=== PATIENT | male | born 1950 | race Caucasian/White ===

== ENCOUNTER 2019-04-03 21:10 | Inpatient (IN) ==
--- NOTE | 2019-04-04 01:05 | Internal Med History&Physical ---
<Angie Coley - Last Filed: 04/04/19 03:49> Date of Encounter: 04/04/19 Time of Encounter: 01:05 Internal Medicine - H&P: HPI Chief complaint: Dizziness, nausea, vomiting Admitted From: Hospital to Hospital Transfer Plans for Post Hospital Care: Home History of present illness: Mr. Stephens is a 68 year old male with past medical history of hypertension who presented as a transfer from [facility] for urological evaluation. Upon my examination the patient he reported that he initially went to the ED due to multiple complaints of dizziness, nausea, vomiting. He reported that today around 1 o'clock after he had eaten [place] for lunch he woke up from a nap with a weird sensation of tingling in his abdomen along with pain. He then got up and felt dizzy and lightheaded. He tried urinating however was unable to. He then became nauseous and vomited his lunch. Additionally he had headache. He still felt unwell and other was something wrong so he called his son and EMS. The patient reported that EMS told him his blood pressure was 187/129. He denied fever, chills, chest pain, shortness of breath, diarrhea, hematuria, melena, weight loss. He has never had anything like this before. He has not taking his metoprolol and over 2 years for hypertension. He reported having difficulty urinating for approximately 2 months with increased urinary frequency throughout the day, dribbling after urinating, feeling of incomplete bladder emptying when urinating. He denied hematuria. He has never had a cystoscopy before. He does not have abdominal pain after eating greasy or fatty foods, however he does notice that spicy foods and salads give him heartburn. His last colonoscopy was a 55 years old when he was told he had 3 polyps that were benign. He denied smoking, drug use, alcohol use. He is a family history of father having colon cancer. He is a full code. In [facility] initial vitals were BP 174/92, HR 72, RR 16, temperature 98.2, 93% on room air. The patient was given ciprofloxacin 400 mg, 1L IVF, clonidine 0.1 mg, Dilaudid 1 mg, famotidine, Zofran. Patient has gross hematuria in hernandes catheter bag that is secondary to traumatic hernandes catheter placement (difficult placement) at [facility]. -WBC 5.3, hemoglobin 16.4, platelets 116, sodium 134, potassium 3.6, glucose 165, creatinine 0.78, calcium 8.7, troponin < 0.03, total bilirubin 1.0, alkaline phosphatase 109, AST 33, ALT 40. -CT abdomen/pelvis demonstrated mild to moderately enlarged retroperitoneal/pe lvic lymph nodes with some adjacent inflammatory change. Findings may be nonspecific inflammatory, infectious, or neoplastic. Nonspecific areas of sclerosis involving the left pubic and iliac bones without fracture. Consider dedicated bone scan or correlate with history of malignancy. Prostatomegaly 8.3 x 7.8 cm and splenomegaly. Scattered subcentimeter by basilar pulmonary nodules with recommendation of one year chest CT follow-up. Past Med Surg Social Fam HX - Past Medical History Attestation: Yes The following information was validated with the patient. Source: patient Medical history: hyperlipidemia, hypertension Psychiatric history: anxiety - Past Surgical History Surgical History: arthroscopy, orthopedic, other Additional surgical history: Left shoulder surgery. bilat knee arthroscopy, right shoulder surgery. Left knee replacement - Social History Smoking Status: Never smoker Smokeless Tobacco Status: No Alcohol use: none Drug use: none - Family History Father Living Status: Age at : 83 Cause of : CA Hx Family Cardiac Disorders: No Hx Family Respiratory Disorders: No Hx Family Cancer: Yes (Prostate CA) Hx Family GI Disorders: No Hx Family Genitourinary Disorders: No Hx Family Endocrine Disorder: No Hx Family Musculoskeletal Disorders: No Hx Family Neuromuscular Disorders: No Hx Family Neurologic Disorders: No Hx Family HEENT Disorders: No Hx Family Autoimmune Disorders: No Hx Family Reproductive Disorders: No Hx Family Psychosocial Disorders: No Hx Family Medical Disorders: No Mother Living Status: Age at : 73 Hx Family Cardiac Disorders: Yes Hx Family Respiratory Disorders: No Hx Family Cancer: No Hx Family GI Disorders: No Hx Family Genitourinary Disorders: No Hx Family Endocrine Disorder: No Hx Family Musculoskeletal Disorders: No Hx Family Neuromuscular Disorders: No Hx Family Neurologic Disorders: No Hx Family HEENT Disorders: No Hx Family Autoimmune Disorders: No Hx Family Reproductive Disorders: No Hx Family Psychosocial Disorders: No Hx Family Medical Disorders: No Sister Living Status: Age at : 54 Cause of : CA Hx Family Cardiac Disorders: No Hx Family Respiratory Disorders: No Hx Family Cancer: Yes (Breast CA) Hx Family GI Disorders: No Hx Family Genitourinary Disorders: No Hx Family Endocrine Disorder: No Hx Family Musculoskeletal Disorders: No Hx Family Neuromuscular Disorders: No Hx Family Neurologic Disorders: No Hx Family HEENT Disorders: No Hx Family Autoimmune Disorders: No Hx Family Reproductive Disorders: No Hx Family Psychosocial Disorders: No Hx Family Medical Disorders: No Internal Medicine - H&P: Meds Amoxicillin 875 mg PO BID 04/04/19 [History] Gemfibrozil [Lopid] 600 mg PO BID 04/04/19 [History] GuaiFENesin/Dextromethorphan [Tussin Dm Cough Syrup] 20 ml PO Q4H PRN 04/04/19 [History] Metoprolol [Lopressor] 50 mg PO DAILY 04/04/19 [History] PredniSONE [Deltasone] 40 mg PO DAILY 04/04/19 [History] Zolpidem [Ambien] 10 mg PO HS 04/04/19 [History] Allergy/AdvReac Type Severity Reaction Status Date / Time tree and shrub pollen Allergy Mild Watery Eye Verified 04/04/19 01:54 All Systems PM: A 10-system review of systems was performed and is negative for pertinent findings except as documented above in the HPI. - Constitutional Constitutional: no chills, no fever(s), no weight loss - EENT Eyes: blurry vision - Cardiovascular Cardiovascular ROS IM: lightheadedness, no chest pain, no edema, no palpitations, no syncope - Respiratory Respiratory: no cough, no dyspnea, no wheezing - Gastrointestinal Gastrointestinal: abdominal pain, loose stools, nausea, vomiting, no constipation, no melena - Genitourinary Genitourinary ROS male: difficulty urinating, post void dribbling, urinary frequency, urinary hesitancy, no hematuria - Musculoskeletal Musculoskeletal ROS IM: limited range of motion, muscle cramps, no joint swelling - Integumentary Integumentary IM: no erythema, no rash - Neurological Neurological ROS: dizziness, headache(s), no frequent falls - Psychiatric Psychiatric: no confusion - Hematologic/Lymphatic Hematologic/Lymphatic: easy bleeding - Constitutional Vitals: Temp Pulse Resp BP Pulse Ox 97.6 F 82 16 173/95 95 04/04/19 00:25 04/04/19 00:25 04/04/19 00:25 04/04/19 00:25 04/04/19 00:25 Exam: Gen.: Vitals noted. No acute distress. AAOx3 HEENT: oropharynx clear, Normocephalic, atraumatic Cardiac: RRR, no murmur, +S1/S2 Pulmonary: CTA bilaterally, no wheezes, rales or rhonchi, equal chest expansion Abdomen: soft, RLQ and LLQ tender, Bowel sounds noted, no guarding MSK: ROM decreased, no joint swelling noted Extremities: no BLE edema, nontender calf, no cyanosis or clubbing Neuro: A&Ox3, moves all extremities, no focal deficits Psych: Appropriate mood and behavior - Assessment and Plan (1) Urinary retention Current Visit: Yes Status: Acute Assessment and plan: Patient has had urinary retention for months now with increased urinary frequency, dribbling after urination, incomplete bladder emptying. No hematuria. He has never had a cystoscopy. The abdominal CT showing prostatomegaly, moderately enlarged retroperitoneal/pelvic lymph nodes, sclerosis of the pubic and iliac bones is concerning for possible malignancy with metastasis. -CT abdomen/pelvis demonstrated mild to moderately enlarged retroperitoneal/pelvic lymph nodes with some adjacent inflammatory change. Findings may be nonspecific inflammatory, infectious, or neoplastic. Nonspecific areas of sclerosis involving the left pubic and iliac bones without fracture. Consider dedicated bone scan or correlate with history of malignancy. Prostatomegaly 8.3 x 7.8 cm and splenomegaly. Plan - urology was consulted for evaluation - consider Hem/onc evaluation after urology evaluates the patient if there is suspicion for metastases with enlarged lymph nodes and sclerosis of pubic and iliac bone. - UA ordered - PSA ordered for baseline level however, it is expected to be elevated due to traumatic hernandes catheter placement - continue Hernandes catheter - continue to monitor I&O (2) Gross hematuria Current Visit: Yes Status: Acute Assessment and plan: Patient has gross hematuria in hernandes catheter bag that is secondary to traumatic hernandes catheter placement at [facility]. - continue hernandes - UA ordered - urology consult order placed (3) Abdominal pain Current Visit: Yes Status: Acute Assessment and plan: The patient complained of abdominal pain diffuse along lower abdomen that occurred this afternoon. - Etiology is likely secondary to muscular strain from wretching. Abdominal CT demonstrated no findings suggestive of small bowel obstruction, diverticulitis, appendicitis, cholecystitis, pancreatitis. - It is improved and only slightly tender. - total bilirubin 1.0, alkaline phosphatase 109, AST 33, ALT 40 - CT abdomen/pelvis demonstrated mild to moderately enlarged retroperitoneal/pelvic lymph nodes with some adjacent inflammatory change. Findings may be nonspecific inflammatory, infectious, or neoplastic. Nonspecific areas of sclerosis involving the left pubic and iliac bones without fracture. Consider dedicated bone scan or correlate with history of malignancy. Prostatomegaly 8.3 x 7.8 cm and splenomegaly. plan: - continue monitor with serial abdominal exams - Tylenol PRN pain Qualifiers: Abdominal location: lower abdomen, unspecified Qualified Code(s): R10.30 - Lower abdominal pain, unspecified (4) Nausea & vomiting Current Visit: Yes Status: Acute Assessment and plan: Patient had initially had nausea and vomiting on presentation. This is likely secondary to his hypertensive emergency. -Improved -Zofran PRN ordered Qualifiers: Vomiting type: unspecified Vomiting Intractability: non-intractable Qualified Code(s): R11.2 - Nausea with vomiting, unspecified (5) Pulmonary nodules Current Visit: Yes Status: Acute Assessment and plan: CT demonstrated pulmonary nodules bilaterally. -CT abdomen/pelvis demonstrated scattered subcentimeter by basilar pulmonary nodules with recommendation of one year chest CT follow-up. -The patient was informed of the pulmonary nodules and was recommended that he follow-up with his PCP to have a repeat chest CT in one year. He acknowledge understanding. (6) Hypertension Current Visit: Yes Status: Acute Assessment and plan: History of hypertension however he has not taken his metoprolol and over 2 years. He used to take metoprolol 50 mg daily. BP on admission 173/95 -BP now 128/74 -since BP has decreased significantly, will not start another BP med. Consider adding lisinopril or CCB if BP elevates and for discharge. - PRN hydralazine ordered Qualifiers: Hypertension type: essential hypertension Qualified Code(s): I10 - Essential (primary) hypertension (7) DVT prophylaxis Current Visit: Yes Status: Acute Assessment and plan: EPCD due to hematuria (8) Hypertensive urgency Current Visit: Yes Status: Acute Assessment and plan: The patient presented with hypertensive urgency reporting that he was told by EMS he had a blood pressure 187/129 at home. At [facility] blood pressure was noted to be 174/92 and he was given 0.1 mg clonidine. The patient was also symptomatic with dizziness, lightheadedness, headache, nausea, vomiting. He is not taking his metoprolol and over 2 years because he chose not to take it anymore. Likely secondary to non compliance with BP meds. Not suspicious for ACS. -BP on admission 173/95 -BP now 128/74 -patient still has a mild headache but is no longer having nausea, vomiting, lightheaded, dizzy. He denied chest pain, palpitations. - EKG showed NSR with no ST or T wave changes indicating ischemia - troponin <0.03 Plan -since BP has decreased significantly, will not start another BP med. Consider adding lisinopril or CCB if BP elevates and for discharge. -continue cardiac telemetry -PRN hydralazine - Time Spent With Patient Total time spent is greater than 50% in coordination of care (as documented) at patient's floor/unit and/or counseling patient: <Su Obrien - Last Filed: 04/04/19 09:40> Date of Encounter: 04/04/19 Internal Medicine - H&P: HPI History of present illness: Mr. Stephens is a 68 year old male All Systems PM: A 10-system review of systems was performed and is negative for pertinent findings except as documented above in the HPI. - Constitutional Vitals: Temp Pulse Resp BP Pulse Ox 97.9 F 87 18 114/72 92 04/04/19 08:00 04/04/19 08:00 04/04/19 08:00 04/04/19 08:00 04/04/19 08:00 Internal Med - H&P Results - Labs CBC & Chem 7: 04/04/19 05:10 04/04/19 05:10 Labs: Short CBC 04/04/19 Range/Units 05:10 WBC 9.5 (4.3-11.1) K/mcL Hgb 16.5 (12.9-16.9) g/dL Hct 46.4 (37.5-50.1) % Plt Count 121 L (140-400) K/mcL Neutrophils # 6.4 (1.6-8.9) K/mcL BMP 04/04/19 05:10 Sodium 134 L Potassium 3.7 Chloride 103 Carbon Dioxide 20 L BUN 11 Creatinine 0.79 Glucose 175 H Calcium 9.0 - Assessment and Plan (1) DVT prophylaxis Current Visit: Yes Status: Acute (2) Urinary retention Current Visit: Yes Status: Acute (3) Abdominal pain Current Visit: Yes Status: Acute Qualifiers: Abdominal location: lower abdomen, unspecified Qualified Code(s): R10.30 - Lower abdominal pain, unspecified (4) Nausea & vomiting Current Visit: Yes Status: Acute Qualifiers: Vomiting type: unspecified Vomiting Intractability: non-intractable Qualified Code(s): R11.2 - Nausea with vomiting, unspecified (5) Hypertension Current Visit: Yes Status: Acute Qualifiers: Hypertension type: essential hypertension Qualified Code(s): I10 - Essential (primary) hypertension (6) Pulmonary nodules Current Visit: Yes Status: Acute (7) Gross hematuria Current Visit: Yes Status: Acute (8) Hypertensive urgency Current Visit: Yes Status: Acute - Time Spent With Patient Total time spent is greater than 50% in coordination of care (as documented) at patient's floor/unit and/or counseling patient: - Attending Attestation I performed a history and physical examination of the patient and discussed their management with the resident. I reviewed the resident's note and agree with the documented plan of care.
[2019-04-04] MEDS ORDERED: Ondansetron ODT 4 MG TAB.RAPDIS SL PRN (01:44)
[2019-04-04] MEDS ORDERED: Naloxone 0.4 MG/ML INJ IVP PRN (01:44)
[2019-04-04] MEDS ORDERED: *HR* Metoprolol 5 MG/5 ML VIAL IVP PRN (02:00)
[2019-04-04] MEDS: Acetaminophen 325 MG TABLET PO PRN (03:24)
[2019-04-04 05:53] LABS: Basophils # 0.1 K/mcL (0.0-0.2); Basophils % 0.5 %; Eosinophils # 0.1 K/mcL (0.0-0.6); Eosinophils % 1.2 %; Hematocrit 46.4 % (37.5-50.1); Hemoglobin 16.5 g/dL (12.9-16.9); Immature Granulocytes % 0.6 % (0-4); Lymphocytes % 21.1 %; Mean Corpuscular HGB Conc 35.6 g/dL (31.6-35.5); Mean Corpuscular Hemoglobin 32.2 pg (28.0-33.3); Mean Corpuscular Volume 90.6 fL (83.0-100.0); Mean Platelet Volume 9.2 fL (9.4-12.4); Monocytes # 0.9 K/mcL (0.0-1.3); Monocytes % 9.8 %; Neutrophils # 6.4 K/mcL (1.6-8.9); Platelet Count 121 K/mcL (140-400); Red Blood Count 5.12 M/mcL (4.19-5.50); Red Cell Distribution Width 13.2 % (11.5-14.5); Segmented Neutrophils % 66.8 %; White Blood Count 9.5 K/mcL (4.3-11.1)
[2019-04-04] MEDS ORDERED: *HR* Heparin 5,000 UNIT/ML VIAL SQ SCH (06:00)
[2019-04-04 06:11] LABS: BUN/Creatinine Ratio 14 (6-26); Blood Urea Nitrogen 11 mg/dL (8-23); Carbon Dioxide 20 mEq/L (23-29); Chloride 103 mEq/L (98-107); Glucose 175 mg/dL (70-105); Osmolality,Calculated 282 (280-300); Potassium 3.7 mEq/L (3.5-5.1); Sodium 134 mEq/L (136-145); eGFR For African Americans > 60 (> 60); eGFR For Non-African Americans > 60 (> 60)
[2019-04-04] MEDS ORDERED: *HR* LORazepam 2 MG/ML VIAL IVP ONE (06:13)
--- NOTE | 2019-04-04 10:42 | Event Note ---
Date of Encounter: 04/04/19 Time of Encounter: 10:42 Patient was seen and examined at bedside-recently had his Jin changed per urology experiencing some urinary discomfort. Discussed with the patient treatment plan including IV fluids as well as follow up as outpatient. We will also consult oncology. Patient verbalizes understanding
--- NOTE | 2019-04-04 11:27 | Urology - Consult Note ---
Date of Encounter: 04/04/19 Time of Encounter: 11:25 - Assessment and Plan (1) Retroperitoneal lymphadenopathy Current Visit: Yes Status: Acute Assessment and plan: She has significant retroperitoneal lymphadenopathy as well as possible skeletal metastasis based on CT scan. Patient will likely require biopsy of prostate as prostate cancer likely source. (2) Elevated PSA Current Visit: Yes Status: Acute Assessment and plan: Patient with very firm prostate and significantly elevated PSA. Concern for prostate cancer at this time. Patient will likely need a prostate biopsy performed as an outpatient within the next 1-2 weeks. We will continue to follow closely along at this time. (3) Gross hematuria Current Visit: Yes Status: Acute Assessment and plan: Patient with off-and-on gross hematuria. I removed the patient's 18-Colombian catheter and attempted to place a Glidewire into the patient's bladder as I was unable to irrigate through the patient's coude catheter. I was unsuccessful in placing the wire into the patient's bladder. This was even after placing a additional catheter into the patient's false passage which had likely been created yesterday. I then was able to replace the 18-Colombian coude catheter into the patient's bladder and irrigate the bladder normally. We will keep a close eye on patient's catheter as well as start the patient on bladder spasm medication. May consider CT scan abdomen and pelvis with IV contrast patient's hematuria does not resolve. Patient will also likely require this because of elevated PSA. (4) Urinary retention Current Visit: Yes Status: Acute Assessment and plan: Patient now with catheter drainage. Patient will need to keep catheter in place at this time. Urology CN:HPI Consult date: 04/04/19 Reason for consult Urology: Gross Hematuria Requesting physician: Angie Coley History of present illness: Ricco is a 68-year-old male who presented outside hospital secondary to urinary difficulties as well as persistent nausea and vomiting. Patient states that he has had urinary difficulties for the past 3-4 months. Patient underwent a CT scan and was found to have retroperitoneal lymphadenopathy as well as a massive prostate. This CT scan was personally reviewed by this physician. They had significant difficulty placing a catheter and were finally able successfully to place an 18-Colombian Coude catheter. Patient denies family history of prostate c ancer. It does sound like the patient's father could have had colon cancer. Patient had a PSA done upon arrival to our hospital which was over 100. Past Med Surg Social Fam HX - Past Medical History Medical history: hyperlipidemia, hypertension Psychiatric history: anxiety - Past Surgical History Surgical History: arthroscopy, orthopedic, other Additional surgical history: Left shoulder surgery. bilat knee arthroscopy, right shoulder surgery. Left knee replacement - Social History Smoking Status: Never smoker Smokeless Tobacco Status: No Alcohol use: none Drug use: none - Family History Father Living Status: Age at : 83 Cause of : CA Hx Family Cardiac Disorders: No Hx Family Respiratory Disorders: No Hx Family Cancer: Yes (Prostate CA) Hx Family GI Disorders: No Hx Family Genitourinary Disorders: No Hx Family Endocrine Disorder: No Hx Family Musculoskeletal Disorders: No Hx Family Neuromuscular Disorders: No Hx Family Neurologic Disorders: No Hx Family HEENT Disorders: No Hx Family Autoimmune Disorders: No Hx Family Reproductive Disorders: No Hx Family Psychosocial Disorders: No Hx Family Medical Disorders: No Mother Living Status: Age at : 73 Hx Family Cardiac Disorders: Yes Hx Family Respiratory Disorders: No Hx Family Cancer: No Hx Family GI Disorders: No Hx Family Genitourinary Disorders: No Hx Family Endocrine Disorder: No Hx Family Musculoskeletal Disorders: No Hx Family Neuromuscular Disorders: No Hx Family Neurologic Disorders: No Hx Family HEENT Disorders: No Hx Family Autoimmune Disorders: No Hx Family Reproductive Disorders: No Hx Family Psychosocial Disorders: No Hx Family Medical Disorders: No Sister Living Status: Age at : 54 Cause of : CA Hx Family Cardiac Disorders: No Hx Family Respiratory Disorders: No Hx Family Cancer: Yes (Breast CA) Hx Family GI Disorders: No Hx Family Genitourinary Disorders: No Hx Family Endocrine Disorder: No Hx Family Musculoskeletal Disorders: No Hx Family Neuromuscular Disorders: No Hx Family Neurologic Disorders: No Hx Family HEENT Disorders: No Hx Family Autoimmune Disorders: No Hx Family Reproductive Disorders: No Hx Family Psychosocial Disorders: No Hx Family Medical Disorders: No Medications and Allergies Amoxicillin 875 mg PO BID 04/04/19 [History] Gemfibrozil [Lopid] 600 mg PO BID 04/04/19 [History] GuaiFENesin/Dextromethorphan [Tussin Dm Cough Syrup] 20 ml PO Q4H PRN 04/04/19 [History] Metoprolol [Lopressor] 50 mg PO DAILY 04/04/19 [History] PredniSONE [Deltasone] 40 mg PO DAILY 04/04/19 [History] Zolpidem [Ambien] 10 mg PO HS 04/04/19 [History] Allergy/AdvReac Type Severity Reaction Status Date / Time tree and shrub pollen Allergy Mild Watery Eye Verified 04/04/19 01:54 Review of Systems - Constitutional no chills, no fever(s) - EENT Nose, mouth and throat: no dizziness - Cardiovascular no chest pain - Respiratory no cough - Gastrointestinal nausea, vomiting - Musculoskeletal no back pain - Integumentary no erythema - Neurological no confusion - Psychiatric no anxiety, no confusion, no depression - Hematologic/Lymphatic no easy bruising Exam Initial Vital Signs Temp Pulse Resp BP Pulse Ox 97.6 F 82 16 173/95 95 04/04/19 00:25 04/04/19 00:25 04/04/19 00:25 04/04/19 00:25 04/04/19 00:25 General/Neuological: alert and oriented x 3 Eyes: normal pupils, non-icteric Neck: no lymphadenopathy noted, supple to touch Cardiovascular: RRR, no murmurs Respiratory: normal respiratory effort, clear bilaterally ABD: soft, nontender, no masses palpated, good bowel sounds Back: no pain on percussion bilaterally : normal phallus, normal scrotum, testicles and epididymides normal, urethral meatus normal. Rectal: Very large firm prostate throughout Skin: no rashes noted Musculoskeletal: normal gait, FROMx4 Urology Results - Labs 04/04/19 05:10 04/04/19 05:10 Abnormal lab results MCHC 35.6 g/dL (31.6-35.5) H 04/04/19 05:10 Plt Count 121 K/mcL (140-400) L 04/04/19 05:10 MPV 9.2 fL (9.4-12.4) L 04/04/19 05:10 Sodium 134 mEq/L (136-145) L 04/04/19 05:10 Carbon Dioxide 20 mEq/L (23-29) L 04/04/19 05:10 Glucose 175 mg/dL (70-105) H 04/04/19 05:10 Prostate Specific Ag 103.32 ng/mL (Less than 4.00) H 04/04/19 05:10 Diabetes panel 04/04/19 Range/Units 05:10 Sodium 134 L (136-145) mEq/L Potassium 3.7 (3.5-5.1) mEq/L Chloride 103 (98-107) mEq/L Carbon Dioxide 20 L (23-29) mEq/L BUN 11 (8-23) mg/dL Creatinine 0.79 (0.70-1.30) mg/dL Glucose 175 H (70-105) mg/dL Calcium 9.0 (8.6-10.3) mg/dL Calcium panel 04/04/19 Range/Units 05:10 Calcium 9.0 (8.6-10.3) mg/dL Pituitary panel 04/04/19 Range/Units 05:10 Sodium 134 L (136-145) mEq/L Potassium 3.7 (3.5-5.1) mEq/L Chloride 103 (98-107) mEq/L Carbon Dioxide 20 L (23-29) mEq/L BUN 11 (8-23) mg/dL Creatinine 0.79 (0.70-1.30) mg/dL Glucose 175 H (70-105) mg/dL Calcium 9.0 (8.6-10.3) mg/dL Adrenal panel 04/04/19 Range/Units 05:10 Sodium 134 L (136-145) mEq/L Potassium 3.7 (3.5-5.1) mEq/L Chloride 103 (98-107) mEq/L Carbon Dioxide 20 L (23-29) mEq/L BUN 11 (8-23) mg/dL Creatinine 0.79 (0.70-1.30) mg/dL Glucose 175 H (70-105) mg/dL Calcium 9.0 (8.6-10.3) mg/dL All other labs normal. - Imaging CT scan - abdomen: image reviewed CT scan - pelvis: image reviewed Consult Discharge Plan - Plan Referrals: NONE,PCP [Primary Care Provider] -
--- NOTE | 2019-04-04 13:09 | Electrocardiograph Report ---
[address] [address] Test Date: 2019-04-04 Pat Name: Ricco Stephens Department: 113 Room: 3B Gender: M Senior [employer] Developer: : 1950 Requested By: Angie Coley Order Number: [id number] Reading MD: Brittny Arana Measurements Intervals [place] Rate: 79 P: 24 IN: 157 QRS: 24 QRSD: 93 T: 29 QT: 382 QTc: 417 Interpretive Statements SINUS RHYTHM Electronically Signed On 04-04-2019 13:07:34 EDT by Brittny Arana
[2019-04-04] MEDS: *HR* OxyCODONE/APAP 5/325 TABLET PO PRN (13:20)
--- NOTE | 2019-04-04 14:22 | Oncology Inp Consult Note ---
<Flaca Hubbard - Last Filed: 04/04/19 16:59> Date of Encounter: 04/04/19 Time of Encounter: 12:45 Assessment and Plan (1) Elevated PSA Status: Acute Assessment and plan: CT abdomen and pelvis note retroperitoneal and pelvic lymphadenopathy, enlarged prostate at 8.3cm x 7.8cm, and splenomegaly. PSA 103. Gross hematuria after hernandes placement. Urology consulted and recommending biopsy as an outpatient. Plan: Start Casodex 50 mg PO daily. Will obtain MSI and BRCA testing as an outpatient. Will Plan for Casodex 50 mg PO daily x 15 days and follow-up at outpatient with Dr. Douglass for further testing and treatment recommendations. - Data of Consult Patient: new to practice Consult date: 04/04/19 Requesting Physician: Su Obrien MD Primary Care Provider: PCP NONE - Consult Narrative Reason for consult: new prostate cancer History of present illness: Mr. Ricco Stephens, a 68yo male with known history of HTN, HLD, and anxiety, presented to OSH ([facility]) due to feeling unwell, nausea, vomiting, and abdominal pain. He was found to have rodrigo hematuria after traumatic hernandes placement. CT abdomen and pelvis from OSH note mild to moderate retroperitoneal and pelvic lymphadenopathy, prostate 8.3x7.8 cm, and splenomegaly. He notes that began having urinary symptoms > 2 months ago. He complains of abdominal pain and cramping, especially after hernandes placement. Mr. Stephens notes that he has had 9 catheter attempts in the past twenty-four hours and he is very uncomfortable. He denies back pain, skeletal pain, fever or chills. He does complain of intermittent muscle spasms. He voices concerns of cost of medical bills. Per H+P CT abdomen/pelvis demonstrated mild to moderately enlarged retroperitoneal/pelvic lymph nodes with some adjacent inflammatory change. Findings may be nonspecific inflammatory, infectious, or neoplastic. Nonspecific areas of sclerosis involving the left pubic and iliac bones without fracture. Consider dedicated bone scan or correlate with history of malignancy. Prostatomegaly 8.3 x 7.8 cm and splenomegaly. Scattered subcentimeter by basilar pulmonary nodules with recommendation of one year chest CT follow-up. PSA: 103 Patient notes that he had PSA checked regularly up until three years ago. Social: Lives in [facility]. Family history of cancer: Father from colon cancer. Sister from breast cancer. Past Med Surg Social Fam HX - Past Medical History Medical history: hyperlipidemia, hypertension Psychiatric history: anxiety - Past Surgical History Surgical History: arthroscopy, orthopedic, other Additional surgical history: Left shoulder surgery. bilat knee arthroscopy, right shoulder surgery. Left knee replacement - Social History Smoking Status: Never smoker Smokeless Tobacco Status: No Alcohol use: none Drug use: none - Family History Father Living Status: Age at : 83 Cause of : CA Hx Family Cardiac Disorders: No Hx Family Respiratory Disorders: No Hx Family Cancer: Yes (Prostate CA) Hx Family GI Disorders: No Hx Family Genitourinary Disorders: No Hx Family Endocrine Disorder: No Hx Family Musculoskeletal Disorders: No Hx Family Neuromuscular Disorders: No Hx Family Neurologic Disorders: No Hx Family HEENT Disorders: No Hx Family Autoimmune Disorders: No Hx Family Reproductive Disorders: No Hx Family Psychosocial Disorders: No Hx Family Medical Disorders: No Mother Living Status: Age at : 73 Hx Family Cardiac Disorders: Yes Hx Family Respiratory Disorders: No Hx Family Cancer: No Hx Family GI Disorders: No Hx Family Genitourinary Disorders: No Hx Family Endocrine Disorder: No Hx Family Musculoskeletal Disorders: No Hx Family Neuromuscular Disorders: No Hx Family Neurologic Disorders: No Hx Family HEENT Disorders: No Hx Family Autoimmune Disorders: No Hx Family Reproductive Disorders: No Hx Family Psychosocial Disorders: No Hx Family Medical Disorders: No Sister Living Status: Age at : 54 Cause of : CA Hx Family Cardiac Disorders: No Hx Family Respiratory Disorders: No Hx Family Cancer: Yes (Breast CA) Hx Family GI Disorders: No Hx Family Genitourinary Disorders: No Hx Family Endocrine Disorder: No Hx Family Musculoskeletal Disorders: No Hx Family Neuromuscular Disorders: No Hx Family Neurologic Disorders: No Hx Family HEENT Disorders: No Hx Family Autoimmune Disorders: No Hx Family Reproductive Disorders: No Hx Family Psychosocial Disorders: No Hx Family Medical Disorders: No Medications and Allergies Amoxicillin 875 mg PO BID 04/04/19 [History] GuaiFENesin/Dextromethorphan [Tussin Dm Cough Syrup] 20 ml PO Q4H PRN 04/04/19 [History] Zolpidem [Ambien] 10 mg PO HS 04/04/19 [History] diazePAM [Valium] 5 mg PO DAILY 04/05/19 [History] Allergy/AdvReac Type Severity Reaction Status Date / Time tree and shrub pollen Allergy Mild Watery Eye Verified 04/04/19 01:54 Constitutional: Absent: anorexia, chills, fever(s) Cardiovascular: Absent: chest pain Respiratory: Absent: cough, dyspnea Gastrointestinal: Present: abdominal pain, nausea, vomiting Genitourinary: Present: difficulty urinating, urinary frequency, urinary hesitancy, urinary incontinence Musculoskeletal: Present: muscle cramps Oncology - Exam - Constitutional General appearance: cooperative, morbidly obese - Respiratory Respiratory exam: Present: decreased breath sounds - Cardiovascular Cardiovascular exam: Present: RRR - GI/Abdominal GI/Abdominal exam: Present: soft. Absent: guarding, tenderness - Additional comments: hernandes with gross hematuria. - Neurological Exam Neurological exam: Present: alert, oriented X3 - Psychiatric Psychiatric exam: Present: normal affect, normal mood - Skin Skin exam: Present: pallor, warm Oncology Inpatient Results Labs: Laboratory Results - last 24 hr 04/04/19 04/04/19 04/04/19 05:10 05:10 05:10 WBC 9.5 RBC 5.12 Hgb 16.5 Hct 46.4 MCV 90.6 MCH 32.2 MCHC 35.6 H RDW 13.2 Plt Count 121 L MPV 9.2 L Immature Gran % 0.6 Seg Neutrophils % 66.8 Lymphocytes % 21.1 Monocytes % 9.8 Eosinophils % 1.2 Basophils % 0.5 Neutrophils # 6.4 Lymphocytes # 2.0 Monocytes # 0.9 Eosinophils # 0.1 Basophils # 0.1 Sodium 134 L Potassium 3.7 Chloride 103 Carbon Dioxide 20 L BUN 11 Creatinine 0.79 Est GFR ( Amer) > 60 Est GFR (Non-Af Amer) > 60 BUN/Creatinine Ratio 14 Glucose 175 H Calculated Osmolality 282 Calcium 9.0 Prostate Specific Ag 103.32 H Consult Discharge Plan - Plan Referrals: NONE,PCP [Primary Care Provider] - Inpatient Charges Provider: Dr. Mary Piedra <Pricila Piedra - Last Filed: 04/05/19 08:34> Date of Encounter: 04/05/19 - Data of Consult Requesting Physician: Su Obrien MD Primary Care Provider: PCP NONE - Attending Attestation Pelvic adenopathy, urinary retention, sclerotic mets in bones per [facility] report with PSA at 100 consistent with metastatic prostate ca. Patient denies ay spec ific complaints, s/p Hernandes, has baseline hot flashes? He was discussed imaging findings, diagnosis with elevated PSA. Lupron to start in ~2wks. Will follow him tro hospital stay to give additional information and consider a prostate bx as outpatient to sed material for immunostains, MSI etc. I examined this patient and my medical decision-making was reviewed with the Advanced Practice Nurse, Flaca Hubbard. I agree with the documented findings, disposition and treatment plan as described except to the extent set forth below. Inpatient Charges Provider: Dr. Mary Piedra Consult - Inpatient: [id number]
--- NOTE | 2019-04-04 15:08 | Event Note ---
Date of Encounter: 04/04/19 Time of Encounter: 14:05 Into see patient and evaluate catheter. Patient lying in bed in no apparent distress. Jin catheter is indwelling and draining transparent, fruit punch urine into bedside bag. Patient denies any abdominal fullness or feeling of obstruction. Plan to continue hand irrigation at bedside as needed. We will reevaluate patient in the a.m.
[2019-04-04] MEDS: 0.9 % Sodium Chloride 1,000 ML IVC SCH (17:19)
[2019-04-04] MEDS: Docusate Oral Soln 100 MG/10 ML UDC GTUBE SCH (20:43)
[2019-04-05 02:36] LABS: Basophils # 0.1 K/mcL (0.0-0.2); Basophils % 0.9 %; Eosinophils # 0.2 K/mcL (0.0-0.6); Eosinophils % 1.8 %; Hematocrit 46.5 % (37.5-50.1); Hemoglobin 16.3 g/dL (12.9-16.9); Immature Granulocytes % 0.6 % (0-4); Lymphocytes # 2.4 K/mcL (0.6-4.6); Lymphocytes % 26.9 %; Mean Corpuscular HGB Conc 35.1 g/dL (31.6-35.5); Mean Corpuscular Hemoglobin 32.1 pg (28.0-33.3); Mean Corpuscular Volume 91.7 fL (83.0-100.0); Mean Platelet Volume 9.3 fL (9.4-12.4); Monocytes # 1.1 K/mcL (0.0-1.3); Monocytes % 12.4 %; Platelet Count 136 K/mcL (140-400); Red Blood Count 5.07 M/mcL (4.19-5.50); Red Cell Distribution Width 13.7 % (11.5-14.5); Segmented Neutrophils % 57.4 %; White Blood Count 8.8 K/mcL (4.3-11.1)
[2019-04-05 02:55] LABS: BUN/Creatinine Ratio 14 (6-26); Blood Urea Nitrogen 14 mg/dL (8-23); Calcium 8.6 mg/dL (8.6-10.3); Carbon Dioxide 23 mEq/L (23-29); Chloride 101 mEq/L (98-107); Glucose 166 mg/dL (70-105); Osmolality,Calculated 280 (280-300); Potassium 3.5 mEq/L (3.5-5.1); Sodium 133 mEq/L (136-145); eGFR For African Americans > 60 (> 60); eGFR For Non-African Americans > 60 (> 60)
[2019-04-05] MEDS: 0.9 % Sodium Chloride 1,000 ML IVC SCH ×4 (04:47→21:58)
[2019-04-05] MEDS: *HR* Belladonna Alkaloids/Opium 30 MG RECTAL SUPPOSITORY RC PRN (05:21)
[2019-04-05] MEDS: Bicalutamide 50 MG TABLET PO SCH (08:37)
[2019-04-05] MEDS: Docusate Oral Soln 100 MG/10 ML UDC GTUBE SCH (08:38)
--- NOTE | 2019-04-05 09:39 | Internal Med Progress Note ---
Hospitalist Progress Note - Encounter Date of Encounter: 04/05/19 Time of Encounter: 09:39 - Subjective Interval History: Patient was seen and examined at bedside currently states his pain is controlled-urine much improved clear in the tubing-discuss treatment plan with the patient he will be evaluated by PT and OT for possible home health or rehabilitation placement - Exam Vitals: Temp Pulse Resp BP Pulse Ox 98.1 F 77 16 134/77 90 04/05/19 06:30 04/05/19 06:30 04/05/19 06:30 04/05/19 06:30 04/05/19 06:30 Exam: Gen.: Vitals noted. No acute distress. AAOx3 HEENT: oropharynx clear, Normocephalic, atraumatic Cardiac: RRR, no murmur, +S1/S2 Pulmonary: CTA bilaterally, no wheezes, rales or rhonchi, equal chest expansion Abdomen: soft, RLQ and LLQ tender, Bowel sounds noted, no guarding MSK: ROM decreased, no joint swelling noted Extremities: no BLE edema, nontender calf, no cyanosis or clubbing Neuro: A&Ox3, moves all extremities, no focal deficits Psych: Appropriate mood and behavior - Assessment and Plan (1) DVT prophylaxis Current Visit: Yes Status: Acute Assessment and Plan: EPCD due to hematuria (2) Urinary retention Current Visit: Yes Status: Acute Assessment and Plan: Patient has had urinary retention for months now with increased urinary frequency, dribbling after urination, incomplete bladder emptying. No hematuria. He has never had a cystoscopy. The abdominal CT showing prostatomegaly, moderately enlarged retroperitoneal/pelvic lymph nodes, sclerosis of the pubic and iliac bones is concerning for possible malignancy with metastasis. -CT abdomen/pelvis demonstrated mild to moderately enlarged retroperitoneal/ pelvic lymph nodes with some adjacent inflammatory change. Findings may be nonspecific inflammatory, infectious, or neoplastic. Nonspecific areas of sclerosis involving the left pubic and iliac bones without fracture. Consider dedicated bone scan or correlate with history of malignancy. Prostatomegaly 8.3 x 7.8 cm and splenomegaly. Plan - urology was consulted for evaluation - consider Hem/onc evaluation after urology evaluates the patient if there is suspicion for metastases with enlarged lymph nodes and sclerosis of pubic and iliac bone. - UA ordered - PSA ordered for baseline level however, it is expected to be elevated due to traumatic hernandes catheter placement - continue Hernandes catheter - continue to monitor I&O 04/05 He was seen by urology-Hernandes has been placed with irrigation urine has improved -Hem/onc HAS been consulted started on Casodex -Urinalysis is pending (3) Abdominal pain Current Visit: Yes Status: Acute Assessment and Plan: The patient complained of abdominal pain diffuse along lower abdomen that occurred this afternoon. - Etiology is likely secondary to muscular strain from wretching. Abdominal CT demonstrated no findings suggestive of small bowel obstruction, diverticulitis, appendicitis, cholecystitis, pancreatitis. - It is improved and only slightly tender. - total bilirubin 1.0, alkaline phosphatase 109, AST 33, ALT 40 - CT abdomen/pelvis demonstrated mild to moderately enlarged retroperitoneal/pelvic lymph nodes with some adjacent inflammatory change. Findings may be nonspecific inflammatory, infectious, or neoplastic. Nonspecific areas of sclerosis involving the left pubic and iliac bones without fracture. Consider dedicated bone scan or correlate with history of malignancy. Prostatomegaly 8.3 x 7.8 cm and splenomegaly. plan: - continue monitor with serial abdominal exams - Tylenol PRN pain 04/04 Continue with oxycodone as well as will add belladonna suppositories for spasms Hem/onc consulted (4) Nausea & vomiting Current Visit: Yes Status: Acute Assessment and Plan: Patient had initially had nausea and vomiting on presentation. This is likely secondary to his hypertensive emergency. -Improved -Zofran PRN ordered (5) Hypertension Current Visit: Yes Status: Acute Assessment and Plan: History of hypertension however he has not taken his metoprolol and over 2 years. He used to take metoprolol 50 mg daily. BP on admission 173/95 -BP now 128/74 -since BP has decreased significantly, will not start another BP med. Consider adding lisinopril or CCB if BP elevates and for discharge. - PRN hydralazine ordered 04/04 Appears to be improving may be secondary to pain continue with pain management will need to lisinopril or CCB if BP continues elevated (6) Pulmonary nodules Current Visit: Yes Status: Acute Assessment and Plan: CT demonstrated pulmonary nodules bilaterally. -CT abdomen/pelvis demonstrated scattered subcentimeter by basilar pulmonary nodules with recommendation of one year chest CT follow-up. -The patient was informed of the pulmonary nodules and was recommended that he follow-up with his PCP to have a repeat chest CT in one year. He acknowledge understanding. (7) Gross hematuria Current Visit: Yes Status: Acute Assessment and Plan: Patient has gross hematuria in hernandes catheter bag that is secondary to traumatic hernandes catheter placement at [facility]. - continue hernandes - UA ordered - urology consult order placed 04/05 Urology consulted continued Hernandes patient was irrigated overnight and urine has improved we will continue Hernandes and patient will follow-up as outpatient for prostate biopsy (8) Hypertensive urgency Current Visit: Yes Status: Acute Assessment and Plan: The patient presented with hypertensive urgency reporting that he was told by EMS he had a blood pressure 187/129 at home. At [facility] blood pressure was noted to be 174/92 and he was given 0.1 mg clonidine. The patient was also symptomatic with dizziness, lightheadedness, headache, nausea, vomiting. He is not taking his metoprolol and over 2 years because he chose not to take it anymore. Likely secondary to non compliance with BP meds. Not suspicious for ACS. -BP on admission 173/95 -BP now 128/74 -patient still has a mild headache but is no longer having nausea, vomiting, lightheaded, dizzy. He denied chest pain, palpitations. - EKG showed NSR with no ST or T wave changes indicating ischemia - troponin <0.03 Plan -since BP has decreased significantly, will not start another BP med. Consider adding lisinopril or CCB if BP elevates and for discharge. -continue cardiac telemetry -PRN hydralazine 04/05 Patient has improved continued hydralazine as needed maintain adequate pain control (9) Physical deconditioning Current Visit: Yes Status: Acute Assessment and Plan: Patient is feeling weak and is requiring assistance getting out of bed-patient does live alone high risk for fall we will consult PT OT for evaluation - Time Spent with Patient Total time spent is greater than 50% in coordination of care (as documented) at patient's floor/unit and/or counseling patient: Internal Medicine: Result - Labs CBC & Chem 7: 04/05/19 01:50 04/05/19 01:50 Labs: Short CBC 04/05/19 Range/Units 01:50 WBC 8.8 (4.3-11.1) K/mcL Hgb 16.3 (12.9-16.9) g/dL Hct 46.5 (37.5-50.1) % Plt Count 136 L (140-400) K/mcL Neutrophils # 5.0 (1.6-8.9) K/mcL BMP 04/05/19 01:50 Sodium 133 L Potassium 3.5 Chloride 101 Carbon Dioxide 23 BUN 14 Creatinine 1.03 Glucose 166 H Calcium 8.6 Consult Discharge Plan - Plan Referrals: NONE,PCP [Primary Care Provider] - (3) Abdominal pain Qualifiers: Abdominal location: lower abdomen, unspecified Qualified Code(s): R10.30 - Lower abdominal pain, unspecified (4) Nausea & vomiting Qualifiers: Vomiting type: unspecified Vomiting Intractability: non-intractable Qualified Code(s): R11.2 - Nausea with vomiting, unspecified (5) Hypertension Qualifiers: Hypertension type: essential hypertension Qualified Code(s): I10 - Essential (primary) hypertension
--- NOTE | 2019-04-05 10:31 | Urology Progress Note ---
<Miri Nguyen N - Last Filed: 04/05/19 10:29> Date of Encounter: 04/05/19 Time of Encounter: 09:15 - Assessment and Plan (1) Elevated PSA Current Visit: Yes Status: Acute Assessment and plan: Patient is a 68-year-old male who presents with a markedly elevated PSA. We will plan to keep patient's catheter, and he will follow up as an outpatient for a prostate biopsy. (2) Gross hematuria Current Visit: Yes Status: Acute Assessment and plan: Patient is a 68-year-old male who presents the history of gross hematuria. Patient has undergone multiple hand irrigations at bedside. Urine appears to be cleared at present. Progress Note Narrative: Patient seen and examined sitting upright in bed in no apparent distress. Jin catheter is indwelling and draining transparent, clear yellow urine within tubing into bedside bag. Objective Initial Vital Signs Temp Pulse Resp BP Pulse Ox 97.6 F 82 16 173/95 95 04/04/19 00:25 04/04/19 00:25 04/04/19 00:25 04/04/19 00:25 04/04/19 00:25 - General physical appearance Present: no distress, no pain - Respiratory Present: normal expansion, normal respiratory effort - Abdomen Present: soft, non tender. Absent: distended - Genitourinary Present: other (Jin catheter indwelling and draining transparent, clearly urine) Urine Appearance: Present: Clear - Integumentary Present: no rash, no abnormal pigmentation - Musculoskeletal Present: normal posture - Psychiatric Present: oriented to time, oriented to person, oriented to place, speech is normal, memory intact - Labs 04/05/19 01:50 04/05/19 01:50 Diabetes panel 04/05/19 Range/Units 01:50 Sodium 133 L (136-145) mEq/L Potassium 3.5 (3.5-5.1) mEq/L Chloride 101 (98-107) mEq/L Carbon Dioxide 23 (23-29) mEq/L BUN 14 (8-23) mg/dL Creatinine 1.03 (0.70-1.30) mg/dL Glucose 166 H (70-105) mg/dL Calcium 8.6 (8.6-10.3) mg/dL Calcium panel 04/05/19 Range/Units 01:50 Calcium 8.6 (8.6-10.3) mg/dL Pituitary panel 04/05/19 Range/Units 01:50 Sodium 133 L (136-145) mEq/L Potassium 3.5 (3.5-5.1) mEq/L Chloride 101 (98-107) mEq/L Carbon Dioxide 23 (23-29) mEq/L BUN 14 (8-23) mg/dL Creatinine 1.03 (0.70-1.30) mg/dL Glucose 166 H (70-105) mg/dL Calcium 8.6 (8.6-10.3) mg/dL Adrenal panel 04/05/19 Range/Units 01:50 Sodium 133 L (136-145) mEq/L Potassium 3.5 (3.5-5.1) mEq/L Chloride 101 (98-107) mEq/L Carbon Dioxide 23 (23-29) mEq/L BUN 14 (8-23) mg/dL Creatinine 1.03 (0.70-1.30) mg/dL Glucose 166 H (70-105) mg/dL Calcium 8.6 (8.6-10.3) mg/dL Consult Discharge Plan - Plan Referrals: NONE,PCP [Primary Care Provider] - <Edvin Springer - Last Filed: 04/05/19 15:48> Date of Encounter: 04/05/19 - Assessment and Plan (1) Retroperitoneal lymphadenopathy Current Visit: Yes Status: Acute (2) Elevated PSA Current Visit: Yes Status: Acute (3) Gross hematuria Current Visit: Yes Status: Acute (4) Urinary retention Current Visit: Yes Status: Acute Progress Note Narrative: Patient was seen and examined independently. Agree with the plan as written by Miri Nguyen. Patient's catheter is clear at this time. We will plan on adding additional bladder spasm medication. Anticipate possible discharge tomorrow. Patient will be scheduled for outpatient prostate biopsy. Objective Initial Vital Signs Temp Pulse Resp BP Pulse Ox 97.6 F 82 16 173/95 95 04/04/19 00:25 04/04/19 00:25 04/04/19 00:25 04/04/19 00:25 04/04/19 00:25 - Labs 04/05/19 01:50 04/05/19 01:50 Diabetes panel 04/05/19 Range/Units 01:50 Sodium 133 L (136-145) mEq/L Potassium 3.5 (3.5-5.1) mEq/L Chloride 101 (98-107) mEq/L Carbon Dioxide 23 (23-29) mEq/L BUN 14 (8-23) mg/dL Creatinine 1.03 (0.70-1.30) mg/dL Glucose 166 H (70-105) mg/dL Calcium 8.6 (8.6-10.3) mg/dL Calcium panel 04/05/19 Range/Units 01:50 Calcium 8.6 (8.6-10.3) mg/dL Pituitary panel 04/05/19 Range/Units 01:50 Sodium 133 L (136-145) mEq/L Potassium 3.5 (3.5-5.1) mEq/L Chloride 101 (98-107) mEq/L Carbon Dioxide 23 (23-29) mEq/L BUN 14 (8-23) mg/dL Creatinine 1.03 (0.70-1.30) mg/dL Glucose 166 H (70-105) mg/dL Calcium 8.6 (8.6-10.3) mg/dL Adrenal panel 04/05/19 Range/Units 01:50 Sodium 133 L (136-145) mEq/L Potassium 3.5 (3.5-5.1) mEq/L Chloride 101 (98-107) mEq/L Carbon Dioxide 23 (23-29) mEq/L BUN 14 (8-23) mg/dL Creatinine 1.03 (0.70-1.30) mg/dL Glucose 166 H (70-105) mg/dL Calcium 8.6 (8.6-10.3) mg/dL
[2019-04-05] MEDS: *HR* OxyCODONE/APAP 5/325 TABLET PO PRN (13:42)
--- NOTE | 2019-04-05 14:58 | Oncology Inp Progress Note ---
<Flaca Hubbard - Last Filed: 04/05/19 17:13> Date of Encounter: 04/05/19 Time of Encounter: 13:45 (1) Elevated PSA Current Visit: Yes Status: Acute Assessment and plan: CT abdomen and pelvis note retroperitoneal and pelvic lymphadenopathy, enlarged prostate at 8.3cm x 7.8cm, and splenomegaly. PSA 103. Gross hematuria after hernandes placement. Urology consulted and recommending biopsy as an outpatient. Plan: Start Casodex 50 mg PO daily. Will obtain MSI and BRCA testing as an outpatient. Will Plan for Casodex 50 mg PO daily x 15 days and follow-up at outpatient with Dr. Douglass in 2 weeks for further testing and treatment recommendations. Oncology: Subj Interval history: Mr. Stephens is awake, resting in bed. He notes intermittent bladder spasms and pain where his urinary catheter is leaking. He declined belladonna suppository this afternoon for his bladder spasms. He began Casodex 50 mg PO today. Discussed plan to follow-up with Dr. Douglass as an outpatient in two weeks. Patient again verbalized concern regarding cost of treatment. mental health social worker has been consulted by hospitalist and will see patient today. He notes that he has also not had a bowel movement in three days, which is abnormal for him. - Constitutional General appearance: mild distress, morbidly obese - GI/Abdominal GI/Abdominal exam: Present: guarding, tenderness - Additional comments: leaking noted around catheter - Extremities Exam Extremities exam: Present: normal inspection - Neurological Exam Neurological exam: Present: alert, oriented X3. Absent: facial droop, speech deficit - Psychiatric Psychiatric exam: Present: anxious - Skin Skin exam: Present: pallor Oncology: Obj Data - Labs CBC & Chem 7: 04/05/19 01:50 04/05/19 01:50 Consult Discharge Plan - Plan Referrals: NONE,PCP [Primary Care Provider] - Inpatient Charges Provider: Dr. Mary Piedra <Pricila Piedra - Last Filed: 04/06/19 11:14> Date of Encounter: 04/06/19 Oncology: Subj Interval history: PAtient was seen nad examined bedside. He has some discomfort due to Hernandes, constipation. Strated casodex, will f/u in clinic for bone scan imaging. CT PACs reviewed, will obtain official reading. I examined this patient and my medical decision-making was reviewed with the Advanced Practice Nurse, Flaca Hubbard. I agree with the documented findings, disposition and treatment plan as described except to the extent set forth below. Oncology: Obj Data - Labs CBC & Chem 7: 04/05/19 01:50 04/05/19 01:50 Inpatient Charges Provider: Dr. Mary Piedra Follow up - Inpatient: [id number]
[2019-04-05] MEDS: Acetaminophen 325 MG TABLET PO PRN (15:52)
[2019-04-05] MEDS: Hyoscyamine SL 0.125 MG TAB.SUBL SL SCH (21:57)
[2019-04-05] MEDS: Docusate Oral Soln 100 MG/10 ML UDC PO SCH (21:58)
[2019-04-06] MEDS: 0.9 % Sodium Chloride 1,000 ML IVC SCH ×2 (05:39→14:15)
[2019-04-06] MEDS: Bicalutamide 50 MG TABLET PO SCH (09:17)
[2019-04-06] MEDS: Hyoscyamine SL 0.125 MG TAB.SUBL SL SCH ×3 (09:17→21:20)
[2019-04-06] MEDS: Docusate Oral Soln 100 MG/10 ML UDC PO SCH ×2 (09:18→21:20)
[2019-04-06] MEDS: *HR* OxyCODONE/APAP 5/325 TABLET PO PRN (09:28)
--- NOTE | 2019-04-06 09:30 | Urology Progress Note ---
<Miri Nguyen - Last Filed: 04/06/19 09:27> Date of Encounter: 04/06/19 Time of Encounter: 08:40 - Assessment and Plan (1) Elevated PSA Current Visit: Yes Status: Acute Assessment and plan: Patient is a 68-year-old male who presents with elevated PSA to 103, enlarged prostate and lymphadenopathy. Patient has been placed on Casodex and is planning follow-up with Dr. Douglass within 2 weeks of discharge. Patient will also require follow-up with Dr. Springer within 2 weeks of discharge for a prostate biopsy. He will be discharged with an indwelling Jin catheter, and nursing staff will provide catheter education as well as a leg bag straps. I have also ordered bacitracin ointment to place a urethral meatus for catheter comfort. (2) Gross hematuria Current Visit: Yes Status: Acute Progress Note Narrative: Patient seen and examined sitting upright in bed eating breakfast in no apparent distress. Patient reports less and has alleviated bladder spasms. Patient is concerned with urethral discomfort secondary to catheter. Jin catheter is indwelling and draining transparent, clear yellow urine into bedside bag. Objective Initial Vital Signs Temp Pulse Resp BP Pulse Ox 97.6 F 82 16 173/95 95 04/04/19 00:25 04/04/19 00:25 04/04/19 00:25 04/04/19 00:25 04/04/19 00:25 - General physical appearance Present: no distress, moderate pain - Respiratory Present: normal expansion, normal respiratory effort - Abdomen Present: soft, non tender. Absent: distended - Genitourinary Urine Appearance: Present: Clear - Integumentary Present: no rash, no abnormal pigmentation - Musculoskeletal Present: normal posture - Psychiatric Present: oriented to time, oriented to person, oriented to place, speech is normal, memory intact - Labs 04/05/19 01:50 04/05/19 01:50 Consult Discharge Plan - Plan Referrals: NONE,PCP [Primary Care Provider] - <Edvin Springer - Last Filed: 04/06/19 16:31> Date of Encounter: 04/06/19 - Assessment and Plan (1) Retroperitoneal lymphadenopathy Current Visit: Yes Status: Acute (2) Elevated PSA Current Visit: Yes Status: Acute (3) Gross hematuria Current Visit: Yes Status: Acute (4) Urinary retention Current Visit: Yes Status: Acute Progress Note Narrative: Patient was seen and examined independently. I agree with the plan as written Mariana Nguyen. Patient will be scheduled in the office for prostate biopsy in the next 1-2 weeks. We will call the patient with the follow-up visit. Objective Initial Vital Signs Temp Pulse Resp BP Pulse Ox 97.6 F 82 16 173/95 95 04/04/19 00:25 04/04/19 00:25 04/04/19 00:25 04/04/19 00:25 04/04/19 00:25 - Labs 04/06/19 12:19 04/06/19 12:19 Diabetes panel 04/06/19 Range/Units 12:19 Sodium 135 L (136-145) mEq/L Potassium 4.1 (3.5-5.1) mEq/L Chloride 105 (98-107) mEq/L Carbon Dioxide 20 L (23-29) mEq/L BUN 11 (8-23) mg/dL Creatinine 0.76 (0.70-1.30) mg/dL Glucose 130 H (70-105) mg/dL Calcium 8.4 L (8.6-10.3) mg/dL Calcium panel 04/06/19 Range/Units 12:19 Calcium 8.4 L (8.6-10.3) mg/dL Pituitary panel 04/06/19 Range/Units 12:19 Sodium 135 L (136-145) mEq/L Potassium 4.1 (3.5-5.1) mEq/L Chloride 105 (98-107) mEq/L Carbon Dioxide 20 L (23-29) mEq/L BUN 11 (8-23) mg/dL Creatinine 0.76 (0.70-1.30) mg/dL Glucose 130 H (70-105) mg/dL Calcium 8.4 L (8.6-10.3) mg/dL Adrenal panel 04/06/19 Range/Units 12:19 Sodium 135 L (136-145) mEq/L Potassium 4.1 (3.5-5.1) mEq/L Chloride 105 (98-107) mEq/L Carbon Dioxide 20 L (23-29) mEq/L BUN 11 (8-23) mg/dL Creatinine 0.76 (0.70-1.30) mg/dL Glucose 130 H (70-105) mg/dL Calcium 8.4 L (8.6-10.3) mg/dL
[2019-04-06] MEDS: Acetaminophen 325 MG TABLET PO PRN (11:43)
[2019-04-06 12:52] LABS: Basophils # 0.1 K/mcL (0.0-0.2); Basophils % 0.7 %; Eosinophils # 0.5 K/mcL (0.0-0.6); Eosinophils % 4.1 %; Hematocrit 48.1 % (37.5-50.1); Hemoglobin 16.8 g/dL (12.9-16.9); Immature Granulocytes % 0.6 % (0-4); Lymphocytes # 2.9 K/mcL (0.6-4.6); Lymphocytes % 24.2 %; Mean Corpuscular HGB Conc 34.9 g/dL (31.6-35.5); Mean Corpuscular Hemoglobin 32.4 pg (28.0-33.3); Mean Corpuscular Volume 92.7 fL (83.0-100.0); Monocytes # 1.4 K/mcL (0.0-1.3); Monocytes % 11.5 %; Neutrophils # 7.1 K/mcL (1.6-8.9); Platelet Count 150 K/mcL (140-400); Red Blood Count 5.19 M/mcL (4.19-5.50); Red Cell Distribution Width 13.4 % (11.5-14.5); Segmented Neutrophils % 58.9 %; White Blood Count 12.1 K/mcL (4.3-11.1)
[2019-04-06 13:11] LABS: BUN/Creatinine Ratio 14 (6-26); Blood Urea Nitrogen 11 mg/dL (8-23); Calcium 8.4 mg/dL (8.6-10.3); Carbon Dioxide 20 mEq/L (23-29); Chloride 105 mEq/L (98-107); Glucose 130 mg/dL (70-105); Osmolality,Calculated 281 (280-300); Potassium 4.1 mEq/L (3.5-5.1); Sodium 135 mEq/L (136-145); eGFR For African Americans > 60 (> 60); eGFR For Non-African Americans > 60 (> 60)
[2019-04-06] MEDS: Loratadine 10 MG TABLET PO SCH (14:16)
--- NOTE | 2019-04-06 15:32 | Internal Med Progress Note ---
Hospitalist Progress Note - Encounter Date of Encounter: 04/06/19 Time of Encounter: 15:28 - Subjective Interval History: Patient was seen and examined at bedside. Currently he is sitting up in a chair. Hernandes is in place and currently draining clear yellow urine He has been evaluated by PT and OT and has recommended inpatient rehabilitation. Discussed recommendations with the patient advised that he will be speaking with caser concerning ECF choices. He verbalizes understanding - Exam Vitals: Temp Pulse Resp BP Pulse Ox 98.0 F 68 15 148/85 90 04/06/19 11:30 04/06/19 11:30 04/06/19 11:30 04/06/19 11:30 04/06/19 11:30 Exam: Gen.: Vitals noted. No acute distress. AAOx3 HEENT: oropharynx clear, Normocephalic, atraumatic Cardiac: RRR, no murmur, +S1/S2 Pulmonary: CTA bilaterally, no wheezes, rales or rhonchi, equal chest expansion Abdomen: soft, RLQ and LLQ tender, Bowel sounds noted, no guarding MSK: ROM decreased, no joint swelling noted Extremities: no BLE edema, nontender calf, no cyanosis or clubbing Neuro: A&Ox3, moves all extremities, no focal deficits Psych: Appropriate mood and behavior - Assessment and Plan (1) DVT prophylaxis Current Visit: Yes Status: Acute Assessment and Plan: EPCD due to hematuria (2) Urinary retention Current Visit: Yes Status: Acute Assessment and Plan: Patient has had urinary retention for months now with increased urinary frequency, dribbling after urination, incomplete bladder emptying. No hematuria. He has never had a cystoscopy. The abdominal CT showing prostatomegaly, moderately enlarged retroperitoneal/pelvic lymph nodes, sclerosis of the pubic and iliac bones is concerning for possible malignancy with metastasis. -CT abdomen/pelvis demonstrated mild to moderately enlarged retroperitoneal/pelvic lymph nodes with some adjacent inflammatory change. Findings may be nonspecific inflammatory, infectious, or neoplastic. Nonspecific areas of sclerosis involving the left pubic and iliac bones without fracture. Consider dedicated bone scan or correlate with history of malignancy. Prostatomegaly 8.3 x 7.8 cm and splenomegaly. Plan - urology was consulted for evaluation - consider Hem/onc evaluation after urology evaluates the patient if there is suspicion for metastases with enlarged lymph nodes and sclerosis of pubic and iliac bone. - UA ordered - PSA ordered for baseline level however, it is expected to be elevated due to traumatic hernandes catheter placement - continue Hernandes catheter - continue to monitor I&O 04/05 He was seen by urology-Hernandes has been placed with irrigation urine has improved -Hem/onc HAS been consulted started on Casodex -Urinalysis is pending 04/06 Today urine in cathter is clear, will cont hernandes per urology recommendations - follow up with urology in 2 weeks (3) Abdominal pain Current Visit: Yes Status: Acute Assessment and Plan: The patient complained of abdominal pain diffuse along lower abdomen that occurred this afternoon. - Etiology is likely secondary to muscular strain from wretching. Abdominal CT demonstrated no findings suggestive of small bowel obstruction, diverticulitis, appendicitis, cholecystitis, pancreatitis. - It is improved and only slightly tender. - total bilirubin 1.0, alkaline phosphatase 109, AST 33, ALT 40 - CT abdomen/pelvis demonstrated mild to moderately enlarged retroperitoneal/pelvic lymph nodes with some adjacent inflammatory change. Findings may be nonspecific inflammatory, infectious, or neoplastic. Nonspecific areas of sclerosis involving the left pubic and iliac bones without fracture. Consider dedicated bone scan or correlate with history of malignancy. Prostatomegaly 8.3 x 7.8 cm and splenomegaly. plan: - continue monitor with serial abdominal exams - Tylenol PRN pain 04/04 Continue with oxycodone as well as will add belladonna suppositories for spasms Hem/onc consulted 04/06 Improved- urinalysis is pending Hem/onc has been consulted and appreciate recommendations Continue with oxycodone as well as belladonna suppositories for spasms (4) Nausea & vomiting Current Visit: Yes Status: Acute Assessment and Plan: Patient had initially had nausea and vomiting on presentation. This is likely secondary to his hypertensive emergency. -Improved -Zofran PRN ordered (5) Hypertension Current Visit: Yes Status: Acute Assessment and Plan: History of hypertension however he has not taken his metoprolol and over 2 years. He used to take metoprolol 50 mg daily. BP on admission 173/95 -BP now 128/74 -since BP has decreased significantly, will not start another BP med. Consider adding lisinopril or CCB if BP elevates and for discharge. - PRN hydralazine ordered 04/04 Appears to be improving may be secondary to pain continue with pain management will add low dose lisinopril (6) Pulmonary nodules Current Visit: Yes Status: Acute Assessment and Plan: CT demonstrated pulmonary nodules bilaterally. -CT abdomen/pelvis demonstrated scattered subcentimeter by basilar pulmonary nodules with recommendation of one year chest CT follow-up. -The patient was informed of the pulmonary nodules and was recommended that he follow-up with his PCP to have a repeat chest CT in one year. He acknowledge understanding. (7) Gross hematuria Current Visit: Yes Status: Acute Assessment and Plan: Patient has gross hematuria in hernandes catheter bag that is secondary to traumatic hernandes catheter placement at [place]. - continue hernandes - UA ordered - urology consult order placed 04/05 Urology consulted continued Hernandes patient was irrigated overnight and urine has improved we will continue Hernandes and patient will follow-up as outpatient for prostate biopsy 04/06 Urine is clear in hernandes cont with hernandes- he will need follow up with urology (8) Hypertensive urgency Current Visit: Yes Status: Acute Assessment and Plan: The patient presented with hypertensive urgency reporting that he was told by EMS he had a blood pressure 187/129 at home. At [place] blood pressure was noted to be 174/92 and he was given 0.1 mg clonidine. The patient was also symptomatic with dizziness, lightheadedness, headache, nausea, vomiting. He is not taking his metoprolol and over 2 years because he chose not to take it anymore. Likely secondary to non compliance with BP meds. Not suspicious for ACS. -BP on admission 173/95 -BP now 128/74 -patient still has a mild headache but is no longer having nausea, vomiting, lightheaded, dizzy. He denied chest pain, palpitations. - EKG showed NSR with no ST or T wave changes indicating ischemia - troponin <0.03 Plan -since BP has decreased significantly, will not start another BP med. Consider adding lisinopril or CCB if BP elevates and for discharge. -continue cardiac telemetry -PRN hydralazine 04/05 Patient has improved continued hydralazine as needed maintain adequate pain control 04/06 BP improved 160-140 however we will add low dose lisinopril Hydralazie as needed (9) Physical deconditioning Current Visit: Yes Status: Acute Assessment and Plan: Patient is feeling weak and is requiring assistance getting out of bed-patient does live alone high risk for fall we will consult PT OT for evaluation 04/06 PT/OT recommending inpatient rehab awaiting approval - Time Spent with Patient Total time spent is greater than 50% in coordination of care (as documented) at patient's floor/unit and/or counseling patient: Internal Medicine: Result - Labs CBC & Chem 7: 04/06/19 12:19 04/06/19 12:19 Labs: Short CBC 04/06/19 Range/Units 12:19 WBC 12.1 H (4.3-11.1) K/mcL Hgb 16.8 (12.9-16.9) g/dL Hct 48.1 (37.5-50.1) % Plt Count 150 (140-400) K/mcL Neutrophils # 7.1 (1.6-8.9) K/mcL BMP 04/06/19 12:19 Sodium 135 L Potassium 4.1 Chloride 105 Carbon Dioxide 20 L BUN 11 Creatinine 0.76 Glucose 130 H Calcium 8.4 L Consult Discharge Plan - Plan Referrals: NONE,PCP [Primary Care Provider] - (3) Abdominal pain Qualifiers: Abdominal location: lower abdomen, unspecified Qualified Code(s): R10.30 - Lower abdominal pain, unspecified (4) Nausea & vomiting Qualifiers: Vomiting type: unspecified Vomiting Intractability: non-intractable Qualified Code(s): R11.2 - Nausea with vomiting, unspecified (5) Hypertension Qualifiers: Hypertension type: essential hypertension Qualified Code(s): I10 - Essential (primary) hypertension
[2019-04-07] MEDS: 0.9 % Sodium Chloride 1,000 ML IVC SCH ×3 (00:13→17:53)
[2019-04-07 00:48] LABS: Bilirubin,Urine Negative (Negative); Blood,Urine Large (Negative); Clarity,Urine Clear (Clear); Color,Urine Yellow (Yellow); Glucose,Urine (UA) Normal (Normal); Ketones,Urine Negative (Negative); Leukocyte Esterase,Urine Moderate (Negative); Nitrite,Urine Negative (Negative); PH,Urine 7.5 pH Units (5.0-8.0); Protein,Urine 30 mg/dL (Neg-Trace); Specific Gravity,Urine 1.012 (1.010-1.025); Urobilinogen,Urine Normal (Normal)
[2019-04-07 00:49] LABS: Bacteria,Urine None Seen per hpf (None-Few); Hyaline Casts,Urine None Seen per lpf (None-Few); RBC,Urine TNTC per hpf (0-3); Squamous Epithelial Cell,Urine Moderate per lpf (None-Few)
[2019-04-07 03:03] LABS: Basophils # 0.1 K/mcL (0.0-0.2); Basophils % 0.6 %; Eosinophils # 0.4 K/mcL (0.0-0.6); Eosinophils % 4.6 %; Hematocrit 45.3 % (37.5-50.1); Hemoglobin 15.5 g/dL (12.9-16.9); Immature Granulocytes % 0.5 % (0-4); Lymphocytes # 2.4 K/mcL (0.6-4.6); Lymphocytes % 25.7 %; Mean Corpuscular HGB Conc 34.2 g/dL (31.6-35.5); Mean Corpuscular Hemoglobin 31.8 pg (28.0-33.3); Mean Platelet Volume 9.2 fL (9.4-12.4); Monocytes # 1.1 K/mcL (0.0-1.3); Monocytes % 11.7 %; Neutrophils # 5.4 K/mcL (1.6-8.9); Platelet Count 124 K/mcL (140-400); Red Blood Count 4.87 M/mcL (4.19-5.50); Red Cell Distribution Width 13.2 % (11.5-14.5); Segmented Neutrophils % 56.9 %; White Blood Count 9.4 K/mcL (4.3-11.1)
[2019-04-07 03:12] LABS: BUN/Creatinine Ratio 11 (6-26); Blood Urea Nitrogen 9 mg/dL (8-23); Calcium 8.5 mg/dL (8.6-10.3); Carbon Dioxide 18 mEq/L (23-29); Chloride 103 mEq/L (98-107); Glucose 119 mg/dL (70-105); Osmolality,Calculated 280 (280-300); Potassium 3.5 mEq/L (3.5-5.1); Sodium 135 mEq/L (136-145); eGFR For African Americans > 60 (> 60); eGFR For Non-African Americans > 60 (> 60)
[2019-04-07] MEDS ORDERED: diazePAM 10 MG/2 ML SYRINGE IVP ONE (03:17)
[2019-04-07] MEDS: Loratadine 10 MG TABLET PO SCH (08:38)
[2019-04-07] MEDS: Bicalutamide 50 MG TABLET PO SCH (08:38)
[2019-04-07] MEDS: Hyoscyamine SL 0.125 MG TAB.SUBL SL SCH ×3 (08:38→21:00)
[2019-04-07] MEDS: *HR* OxyCODONE/APAP 5/325 TABLET PO PRN ×2 (08:39→21:05)
[2019-04-07] MEDS: Docusate Oral Soln 100 MG/10 ML UDC PO SCH ×2 (08:39→21:00)
--- NOTE | 2019-04-07 14:09 | Internal Med Progress Note ---
Hospitalist Progress Note - Encounter Date of Encounter: 04/07/19 Time of Encounter: 14:06 - Subjective Interval History: Patient was seen and examined at bedside currently denies any pain or discomfort denies any constipation at this time states he did have a bowel movement last night. Discussed with patient that he will be going to the [facility] on Tuesday verbalizes understanding - Exam Vitals: Temp Pulse Resp BP Pulse Ox 97.4 F L 77 17 131/82 94 04/07/19 12:19 04/07/19 12:19 04/07/19 12:19 04/07/19 12:04/07/19 12:19 Exam: Gen.: Vitals noted. No acute distress. AAOx3 HEENT: oropharynx clear, Normocephalic, atraumatic Cardiac: RRR, no murmur, +S1/S2 Pulmonary: CTA bilaterally, no wheezes, rales or rhonchi, equal chest expansion Abdomen: soft, RLQ and LLQ tender, Bowel sounds noted, no guarding MSK: ROM decreased, no joint swelling noted Extremities: no BLE edema, nontender calf, no cyanosis or clubbing Neuro: A&Ox3, moves all extremities, no focal deficits Psych: Appropriate mood and behavior - Assessment and Plan (1) DVT prophylaxis Current Visit: Yes Status: Acute Assessment and Plan: EPCD due to hematuria (2) Urinary retention Current Visit: Yes Status: Acute Assessment and Plan: Patient has had urinary retention for months now with increased urinary frequency, dribbling after urination, incomplete bladder emptying. No h ematuria. He has never had a cystoscopy. The abdominal CT showing prostatomegaly, moderately enlarged retroperitoneal/pelvic lymph nodes, sclerosis of the pubic and iliac bones is concerning for possible malignancy with metastasis. -CT abdomen/pelvis demonstrated mild to moderately enlarged retro peritoneal/pelvic lymph nodes with some adjacent inflammatory change. Findings may be nonspecific inflammatory, infectious, or neoplastic. Nonspecific areas of sclerosis involving the left pubic and iliac bones without fracture. Consider dedicated bone scan or correlate with history of malignancy. Prostatomegaly 8.3 x 7.8 cm and splenomegaly. Plan - urology was consulted for evaluation - consider Hem/onc evaluation after urology evaluates the patient if there is suspicion for metastases with enlarged lymph nodes and sclerosis of pubic and iliac bone. - UA ordered - PSA ordered for baseline level however, it is expected to be elevated due to traumatic hernandes catheter placement - continue Hernandes catheter - continue to monitor I&O 04/05 He was seen by urology-Hernandes has been placed with irrigation urine has improved -Hem/onc HAS been consulted started on Casodex -Urinalysis is pending 04/06 Today urine in cathter is clear, will cont hernandes per urology recommendations - follow up with urology in 2 weeks 04/07 Urine is clear and tube patient will follow up with urology as an outpatient (3) Abdominal pain Current Visit: Yes Status: Acute Assessment and Plan: The patient complained of abdominal pain diffuse along lower abdomen that occurred this afternoon. - Etiology is likely secondary to muscular strain from wretching. Abdominal CT demonstrated no findings suggestive of small bowel obstruction, diverticulitis, appendicitis, cholecystitis, pancreatitis. - It is improved and only slightly tender. - total bilirubin 1.0, alkaline phosphatase 109, AST 33, ALT 40 - CT abdomen/pelvis demonstrated mild to moderately enlarged retroperitoneal/pelvic lymph nodes with some adjacent inflammatory change. Findings may be nonspecific inflammatory, infectious, or neoplastic. Nonspecific areas of sclerosis involving the left pubic and iliac bones without fracture. Consider dedicated bone scan or correlate with history of malignancy. Prostatomegaly 8.3 x 7.8 cm and splenomegaly. plan: - continue monitor with serial abdominal exams - Tylenol PRN pain 04/04 Continue with oxycodone as well as will add belladonna suppositories for spasms Hem/onc consulted 04/06 Improved- urinalysis is pending Hem/onc has been consulted and appreciate recommendations Continue with oxycodone as well as belladonna suppositories for spasms 04/07 This is improved Hem/onc been consulted and appreciate recommendations Continue with oxycodone as well as belladonna suppository for spasms (4) Nausea & vomiting Current Visit: Yes Status: Acute Assessment and Plan: Patient had initially had nausea and vomiting on presentation. This is likely secondary to his hypertensive emergency. -Improved -Zofran PRN ordered (5) Hypertension Current Visit: Yes Status: Acute Assessment and Plan: History of hypertension however he has not taken his metoprolol and over 2 years. He used to take metoprolol 50 mg daily. BP on admission 173/95 -BP now 128/74 -since BP has decreased significantly, will not start another BP med. Consider adding lisinopril or CCB if BP elevates and for discharge. - PRN hydralazine ordered 04/04 Appears to be improving may be secondary to pain continue with pain management will add low dose lisinopril (6) Pulmonary nodules Current Visit: Yes Status: Acute Assessment and Plan: CT demonstrated pulmonary nodules bilaterally. -CT abdomen/pelvis demonstrated scattered subcentimeter by basilar pulmonary nodules with recommendation of one year chest CT follow-up. -The patient was informed of the pulmonary nodules and was recommended that he follow-up with his PCP to have a repeat chest CT in one year. He acknowledge understanding. (7) Gross hematuria Current Visit: Yes Status: Acute Assessment and Plan: Patient has gross hematuria in hernandes catheter bag that is secondary to traumatic hernandes catheter placement at [place]. - continue hernandes - UA ordered - urology consult order placed 04/05 Urology consulted continued Hernandes patient was irrigated overnight and urine has improved we will continue Hernandes and patient will follow-up as outpatient for prostate biopsy 04/06 Urine is clear in hernandes cont with hernandes- he will need follow up with urology 04/07 Urine is clear in tubing She will follow-up with urology as outpatient (8) Hypertensive urgency Current Visit: Yes Status: Acute Assessment and Plan: The patient presented with hypertensive urgency reporting that he was told by EMS he had a blood pressure 187/129 at home. At [place] blood pressure was noted to be 174/92 and he was given 0.1 mg clonidine. The patient was also symptomatic with dizziness, lightheadedness, headache, nausea, vomiting. He is not taking his metoprolol and over 2 years because he chose not to take it anymore. Likely secondary to non compliance with BP meds. Not suspicious for ACS. -BP on admission 173/95 -BP now 128/74 -patient still has a mild headache but is no longer having nausea, vomiting, lightheaded, dizzy. He denied chest pain, palpitations. - EKG showed NSR with no ST or T wave changes indicating ischemia - troponin <0.03 Plan -since BP has decreased significantly, will not start another BP med. Consider adding lisinopril or CCB if BP elevates and for discharge. -continue cardiac telemetry -PRN hydralazine 8/29 Patient has improved continued hydralazine as needed maintain adequate pain control 04/06 BP improved 160-140 however we will add low dose lisinopril Hydralazie as needed (9) Physical deconditioning Current Visit: Yes Status: Acute Assessment and Plan: Patient is feeling weak and is requiring assistance getting out of bed-patient does live alone high risk for fall we will consult PT OT for evaluation 04/06 PT/OT recommending inpatient rehab awaiting approval - Time Spent with Patient Total time spent is greater than 50% in coordination of care (as documented) at patient's floor/unit and/or counseling patient: Internal Medicine: Result - Labs CBC & Chem 7: 04/07/19 01:46 04/07/19 01:46 Labs: Short CBC 04/07/19 Range/Units 01:46 WBC 9.4 (4.3-11.1) K/mcL Hgb 15.5 (12.9-16.9) g/dL Hct 45.3 (37.5-50.1) % Plt Count 124 L (140-400) K/mcL Neutrophils # 5.4 (1.6-8.9) K/mcL BMP 04/07/19 01:46 Sodium 135 L Potassium 3.5 Chloride 103 Carbon Dioxide 18 L BUN 9 Creatinine 0.79 Glucose 119 H Calcium 8.5 L Urine 04/07/19 Range/Units 00:42 Urine Color Yellow (Yellow) Urine Clarity Clear (Clear) Urine pH 7.5 (5.0-8.0) pH Units Ur Specific [place] 1.012 (1.010-1.025) Urine Protein 30 H (Neg-Trace) mg/dL Urine Glucose (UA) Normal (Normal) mg/dL Consult Discharge Plan - Plan Referrals: Jennifer Ku, [employer] [Advanced Practice Nurse] - (3) Abdominal pain Qualifiers: Abdominal location: lower abdomen, unspecified Qualified Code(s): R10.30 - Lower abdominal pain, unspecified (4) Nausea & vomiting Qualifiers: Vomiting type: unspecified Vomiting Intractability: non-intractable Qualified Code(s): R11.2 - Nausea with vomiting, unspecified (5) Hypertension Qualifiers: Hypertension type: essential hypertension Qualified Code(s): I10 - Essential (primary) hypertension
[2019-04-07] MEDS: *HR* Belladonna Alkaloids/Opium 30 MG RECTAL SUPPOSITORY RC PRN (17:59)
[2019-04-08] MEDS: Acetaminophen 325 MG TABLET PO PRN (01:51)
[2019-04-08] MEDS: 0.9 % Sodium Chloride 1,000 ML IVC SCH ×3 (02:49→10:34)
[2019-04-08] MEDS: *HR* OxyCODONE/APAP 5/325 TABLET PO PRN ×3 (02:50→22:01)
[2019-04-08] MEDS: Loratadine 10 MG TABLET PO SCH (08:01)
[2019-04-08] MEDS: Bicalutamide 50 MG TABLET PO SCH (08:03)
[2019-04-08] MEDS: Hyoscyamine SL 0.125 MG TAB.SUBL SL SCH ×3 (08:03→20:35)
[2019-04-08] MEDS: Docusate Oral Soln 100 MG/10 ML UDC PO SCH ×2 (08:04→20:35)
--- NOTE | 2019-04-08 13:02 | Internal Med Progress Note ---
Hospitalist Progress Note - Encounter Date of Encounter: 04/08/19 Time of Encounter: 13:00 - Subjective Interval History: Patient was seen and examined states that pain is controlled bathrooms are improving, urine appears to be clear at this time patient will go to [facility] tomorrow patient verbalizes understanding - Exam Vitals: Temp Pulse Resp BP Pulse Ox 97.7 F 80 16 122/76 95 04/08/19 11:03 04/08/19 11:03 04/08/19 11:03 04/08/19 11:03 04/08/19 11:03 Exam: Gen.: Vitals noted. No acute distress. AAOx3 HEENT: oropharynx clear, Normocephalic, atraumatic Cardiac: RRR, no murmur, +S1/S2 Pulmonary: CTA bilaterally, no wheezes, rales or rhonchi, equal chest expansion Abdomen: soft, RLQ and LLQ tender, Bowel sounds noted, no guarding MSK: ROM decreased, no joint swelling noted Extremities: no BLE edema, nontender calf, no cyanosis or clubbing Neuro: A&Ox3, moves all extremities, no focal deficits Psych: Appropriate mood and behavior - Assessment and Plan (1) DVT prophylaxis Current Visit: Yes Status: Acute Assessment and Plan: EPCD due to hematuria (2) Urinary retention Current Visit: Yes Status: Acute Assessment and Plan: Patient has had urinary retention for months now with increased urinary frequency, dribbling after urination, incomplete bladder emptying. No hematuria. He has never had a cystoscopy. The abdominal CT showing pr ostatomegaly, moderately enlarged retroperitoneal/pelvic lymph nodes, sclerosis of the pubic and iliac bones is concerning for possible malignancy with metastasis. -CT abdomen/pelvis demonstrated mild to moderately enlarged retroperitoneal/pelvic lymph nodes with some adjacent inflammatory change. Findings may be nonspecific inflammatory, infectious, or neoplastic. Nonspecific areas of sclerosis involving the left pubic and iliac bones without fracture. Consider dedicated bone scan or correlate with history of malignancy. Prostatomegaly 8.3 x 7.8 cm and splenomegaly. Plan - urology was consulted for evaluation - consider Hem/onc evaluation after urology evaluates the patient if there is suspicion for metastases with enlarged lymph nodes and sclerosis of pubic and iliac bone. - UA ordered - PSA ordered for baseline level however, it is expected to be elevated due to traumatic hernandes catheter placement - continue Hernandes catheter - continue to monitor I&O 04/05 He was seen by urology-Hernandes has been placed with irrigation urine has improved -Hem/onc HAS been consulted started on Casodex -Urinalysis is pending 04/06 Today urine in cathter is clear, will cont hernandes per urology recommendations - follow up with urology in 2 weeks 04/07 Urine is clear and tube patient will follow up with urology as an outpatient 04/08 Appears to be during well urine is clear follow-up with urology as outpatient (3) Abdominal pain Current Visit: Yes Status: Acute Assessment and Plan: The patient complained of abdominal pain diffuse along lower abdomen that occurred this afternoon. - Etiology is likely secondary to muscular strain from wretching. Abdominal CT demonstrated no findings suggestive of small bowel obstruction, diverticulitis, appendicitis, cholecystitis, pancreatitis. - It is improved and only slightly tender. - total bilirubin 1.0, alkaline phosphatase 109, AST 33, ALT 40 - CT abdomen/pelvis demonstrated mild to moderately enlarged retroperitoneal/pelvic lymph nodes with some adjacent inflammatory change. Findings may be nonspecific inflammatory, infectious, or neoplastic. Nonspecific areas of sclerosis involving the left pubic and iliac bones without fracture. Consider dedicated bone scan or correlate with history of malignancy. Prostatomegaly 8.3 x 7.8 cm and splenomegaly. plan: - continue monitor with serial abdominal exams - Tylenol PRN pain 04/04 Continue with oxycodone as well as will add belladonna suppositories for spasms Hem/onc consulted 04/06 Improved- urinalysis is pending Hem/onc has been consulted and appreciate recommendations Continue with oxycodone as well as belladonna suppositories for spasms 04/07 This is improved Hem/onc been consulted and appreciate recommendations Continue with oxycodone as well as belladonna suppository for spasms 04/08 as above (4) Nausea & vomiting Current Visit: Yes Status: Acute Assessment and Plan: Patient had initially had nausea and vomiting on presentation. This is likely secondary to his hypertensive emergency. -Improved -Zofran PRN ordered (5) Hypertension Current Visit: Yes Status: Acute Assessment and Plan: History of hypertension however he has not taken his metoprolol and over 2 years. He used to take metoprolol 50 mg daily. BP on admission 173/95 -BP now 128/74 -since BP has decreased significantly, will not start another BP med. Consider adding lisinopril or CCB if BP elevates and for discharge. - PRN hydralazine ordered 04/04 Appears to be improving may be secondary to pain continue with pain management will add low dose lisinopril 04/08 Appears to be stable we will continue with lisinopril and pain medication (6) Pulmonary nodules Current Visit: Yes Status: Acute Assessment and Plan: CT demonstrated pulmonary nodules bilaterally. -CT abdomen/pelvis demonstrated scattered subcentimeter by basilar pulmonary nodules with recommendation of one year chest CT follow-up. -The patient was informed of the pulmonary nodules and was recommended that he follow-up with his PCP to have a repeat chest CT in one year. He acknowledge understanding. (7) Gross hematuria Current Visit: Yes Status: Acute Assessment and Plan: Patient has gross hematuria in hernandes catheter bag that is secondary to traumatic hernandes catheter placement at [place]. - continue hernandes - UA ordered - urology consult order placed 04/05 Urology consulted continued Hernandes patient was irrigated overnight and urine has improved we will continue Hernandes and patient will follow-up as outpatient for prostate biopsy 04/06 Urine is clear in hernandes cont with hernandes- he will need follow up with urology 04/07 Urine is clear in tubing She will follow-up with urology as outpatient 04/08 As above (8) Hypertensive urgency Current Visit: Yes Status: Acute Assessment and Plan: The patient presented with hypertensive urgency reporting that he was told by EMS he had a blood pressure 187/129 at home. At [place] blood pressure was noted to be 174/92 and he was given 0.1 mg clonidine. The patient was also symptomatic with dizziness, lightheadedness, headache, nausea, vomiting. He is not taking his metoprolol and over 2 years because he chose not to take it anymore. Likely secondary to non compliance with BP meds. Not suspicious for ACS. -BP on admission 173/95 -BP now 128/74 -patient still has a mild headache but is no longer having nausea, vomiting, lightheaded, dizzy. He denied chest pain, palpitations. - EKG showed NSR with no ST or T wave changes indicating ischemia - troponin <0.03 Plan -since BP has decreased significantly, will not start another BP med. Consider adding lisinopril or CCB if BP elevates and for discharge. -continue cardiac telemetry -PRN hydralazine 04/05 Patient has improved continued hydralazine as needed maintain adequate pain control 04/06 BP improved 160-140 however we will add low dose lisinopril Hydralazie as needed 04/08 Improved continue with lisinopril as well as pain control (9) Physical deconditioning Current Visit: Yes Status: Acute Assessment and Plan: Patient is feeling weak and is requiring assistance getting out of bed-patient does live alone high risk for fall we will consult PT OT for evaluation 04/06 PT/OT recommending inpatient rehab awaiting approval 04/08 He will be discharged tomorrow to [facility] - Time Spent with Patient Total time spent is greater than 50% in coordination of care (as documented) at patient's floor/unit and/or counseling patient: Internal Medicine: Result - Labs CBC & Chem 7: 04/07/19 01:46 04/07/19 01:46 Consult Discharge Plan - Plan Referrals: Jennifer Ku, CRIME ANALYST [Advanced Practice Nurse] - (3) Abdominal pain Qualifiers: Abdominal location: lower abdomen, unspecified Qualified Code(s): R10.30 - Lower abdominal pain, unspecified (4) Nausea & vomiting Qualifiers: Vomiting type: unspecified Vomiting Intractability: non-intractable Qualified Code(s): R11.2 - Nausea with vomiting, unspecified (5) Hypertension Qualifiers: Hypertension type: essential hypertension Qualified Code(s): I10 - Essential (primary) hypertension
[2019-04-08] MEDS ORDERED: Chloraseptic Spray 177 ML BOTTLE MM PRN (16:07)
[2019-04-09] MEDS: Acetaminophen 325 MG TABLET PO PRN (02:30)
[2019-04-09 04:38] LABS: Basophils # 0.1 K/mcL (0.0-0.2); Basophils % 0.7 %; Eosinophils # 0.6 K/mcL (0.0-0.6); Eosinophils % 7.8 %; Hemoglobin 15.2 g/dL (12.9-16.9); Immature Granulocytes % 0.7 % (0-4); Lymphocytes # 2.5 K/mcL (0.6-4.6); Lymphocytes % 33.3 %; Mean Corpuscular HGB Conc 34.5 g/dL (31.6-35.5); Mean Corpuscular Hemoglobin 32.5 pg (28.0-33.3); Mean Corpuscular Volume 94.2 fL (83.0-100.0); Mean Platelet Volume 9.1 fL (9.4-12.4); Monocytes # 0.8 K/mcL (0.0-1.3); Monocytes % 10.7 %; Neutrophils # 3.5 K/mcL (1.6-8.9); Platelet Count 139 K/mcL (140-400); Red Blood Count 4.67 M/mcL (4.19-5.50); Red Cell Distribution Width 13.3 % (11.5-14.5); Segmented Neutrophils % 46.8 %; White Blood Count 7.5 K/mcL (4.3-11.1)
[2019-04-09 04:53] LABS: BUN/Creatinine Ratio 13 (6-26); Blood Urea Nitrogen 11 mg/dL (8-23); Calcium 8.5 mg/dL (8.6-10.3); Carbon Dioxide 21 mEq/L (23-29); Chloride 106 mEq/L (98-107); Glucose 101 mg/dL (70-105); Osmolality,Calculated 280 (280-300); Potassium 3.6 mEq/L (3.5-5.1); Sodium 135 mEq/L (136-145); eGFR For African Americans > 60 (> 60); eGFR For Non-African Americans > 60 (> 60)
[2019-04-09] MEDS: Hyoscyamine SL 0.125 MG TAB.SUBL SL SCH (08:42)
[2019-04-09] MEDS: Loratadine 10 MG TABLET PO SCH (08:43)
[2019-04-09] MEDS: Bicalutamide 50 MG TABLET PO SCH (08:43)
[2019-04-09] MEDS: Docusate Oral Soln 100 MG/10 ML UDC PO SCH (08:44)
[2019-04-09] MEDS: *HR* OxyCODONE/APAP 5/325 TABLET PO PRN (08:55)
--- NOTE | 2019-04-09 10:20 | Discharge Summary ---
- NOTES TO OUTPATIENT PROVIDER Notes to Outpatient Provider: Will need to follow-up with urology in 2 weeks for prostate biopsy. Continue with Jin catheter until evaluated by urology. Follow-up with oncology 2 weeks of discharge for follow-up continue with Casodex for 15 days Orders not resulted at time of discharge: Pending orders 04/07/19 08:45 Urinalysis Reflex Cult & Micro [URIN] Routine Date of Encounter: 04/09/19 Time of Encounter: 10:15 - Discharge Diagnosis (1) Urinary retention Priority: Secondary Status: Acute (2) Abdominal pain Priority: Primary Status: Acute Qualifiers: Abdominal location: lower abdomen, unspecified Qualified Code(s): R10.30 - Lower abdominal pain, unspecified (3) Nausea & vomiting Priority: Secondary Status: Acute Qualifiers: Vomiting type: unspecified Vomiting Intractability: non-intractable Qualified Code(s): R11.2 - Nausea with vomiting, unspecified (4) Hypertension Priority: Secondary Status: Acute Qualifiers: Hypertension type: essential hypertension Qualified Code(s): I10 - Essential (primary) hypertension (5) Pulmonary nodules Priority: Secondary Status: Acute (6) Gross hematuria Priority: Primary Status: Acute (7) Hypertensive urgency Priority: Secondary Status: Acute (8) Physical deconditioning Priority: Secondary Status: Acute Hospital course: Mr. Stephens is a 68 year old male past medical history of hypertension who presented to the [facility] for urological evaluation. He been experiencing dizziness and nausea and vomiting and has been experiencing lower abdominal pain. He was unable to urinate. On presentation his blood pressure was elevated he had no fevers chills or diarrhea. Patient has not been compliant with his home medications and has not taken his blood pressure medication over 2 years due to insurance difficulties. He has been experiencing difficulty urinating for approximately 2 months with increased urinary frequency and dribbling after urinating and feeling of incomplete bladder emptying after urination. No hematuria at home. CT of abdomen and pelvis did reveal mild to moderately enlarged retroperitoneal/pelvic lymph node with some adjacent inflammatory changes. Findings may be nonspecific inflammatory, infectious or neoplastic. Nonspecific areas of sclerosis involving the left pubic and iliac bones without fracture. Consider dedicated bone scan or correlate with history of malignancy. Prostatomegaly 8.3 x 7.8 cm and splenomegaly. Scattered subcentimeter by basilar pulmonary nodules with recommendation of one year chest. Patient was transferred to [facility] for further orthopedic evaluation. He was evaluated by urology-he had gross hematuria catheter was replaced PSA was significantly elevated with a firm prostate on exam concerns for prostate cancer. He will follow up with urology for outpatient biopsy Oncology was consulted and patient was placed on Casodex 50 mg daily for 15 days and will follow-up with Dr. Douglass 2 weeks for further testing and treatment recommendations. During stay patient was very weak and had difficulty getting out of bed. He was evaluated by PT OT recommended inpatient rehabilitation he has been accepted at [facility]-he will be discharged with Jin catheter nursing staff advised not to remove catheter -he will follow-up with urology as well as oncology and his PCP currently he is hemodynamically stable at this time and is ready for discharge. - Time Spent with Patient Total time spent providing and/or coordinating discharge services: - Discharge Medications Prescriptions: New Bacitracin OINT [Ak-Tracin] 1 appl TP BID tube Belladonna Alkaloids/Opium [B + O] 30 mg RC Q6HR PRN 1 Days #4 supp.rect PRN Reason: Spasms Bicalutamide [Casodex] 50 mg PO DAILY tablet Loratadine [Claritin] 10 mg PO DAILY tablet Hyoscyamine SL [Levsin Sl] 0.125 mg SL TID tab.subl Gemfibrozil [Lopid] 600 mg PO BID tablet OxyCODONE/APAP 5/325 [Percocet 5/325 MG] 1 each PO Q6HR PRN 1 Days #4 tablet PRN Reason: Pain Lisinopril [Zestril] 5 mg PO DAILY tablet Chloraseptic Fosters [Chloraseptic] 2 spray MM QID PRN bottle PRN Reason: Sore Throat Docusate [Colace] 100 mg PO BID udc Ondansetron ODT [Zofran ODT] 4 mg SL Q8HR PRN tab.rapdis PRN Reason: Nausea And Vomiting Polyethylene Glycol 3350 [MiraLAX] 17 gm PO DAILY powd.pack Oxybutynin [Ditropan] 5 mg PO TID tablet Continued Zolpidem [Ambien] 10 mg PO HS 1 Days #1 tablet Discontinued Amoxicillin 875 mg PO BID diazePAM [Valium] 5 mg PO DAILY No Action GuaiFENesin/Dextromethorphan [Tussin Dm Cough Syrup] 20 ml PO Q4H PRN PRN Reason: Cough Home Medications: GuaiFENesin/Dextromethorphan [Tussin Dm Cough Syrup] 20 ml PO Q4H PRN 04/04/19 [History] Bacitracin OINT [Ak-Tracin] 1 appl TP BID tube 04/09/19 [Rx] Belladonna Alkaloids/Opium [B + O] 30 mg RC Q6HR PRN 1 Days #4 supp.rect 04/09/19 [Rx] Bicalutamide [Casodex] 50 mg PO DAILY tablet 04/09/19 [Rx] Chloraseptic Fosters [Chloraseptic] 2 spray MM QID PRN bottle 04/09/19 [Rx] Docusate [Colace] 100 mg PO BID udc 04/09/19 [Rx] Gemfibrozil [Lopid] 600 mg PO BID tablet 04/09/19 [Rx] Hyoscyamine SL [Levsin Sl] 0.125 mg SL TID tab.subl 04/09/19 [Rx] Lisinopril [Zestril] 5 mg PO DAILY tablet 04/09/19 [Rx] Loratadine [Claritin] 10 mg PO DAILY tablet 04/09/19 [Rx] Ondansetron ODT [Zofran ODT] 4 mg SL Q8HR PRN tab.rapdis 04/09/19 [Rx] OxyCODONE/APAP 5/325 [Percocet 5/325 MG] 1 each PO Q6HR PRN 1 Days #4 tablet 04/09/19 [Rx] Oxybutynin [Ditropan] 5 mg PO TID tablet 04/09/19 [Rx] Polyethylene Glycol 3350 [MiraLAX] 17 gm PO DAILY powd.pack 04/09/19 [Rx] Zolpidem [Ambien] 10 mg PO HS 1 Days #1 tablet 04/09/19 [Rx] Allergies/Adverse Reactions: Allergy/AdvReac Type Severity Reaction Status Date / Time tree and shrub pollen Allergy Mild Watery Eye Verified 04/04/19 01:54 Date of admission: 04/06/19 12:36 Primary care physician: PCP NONE Consults: 04/04/19 01:56 Consult to Urology [CONS] Routine Consulting Provider: Urology Ary Reason for Consult: urinary retention. prostatomegaly with retroperitoneal lymph nodes. sclerosis of pubic and iliac bones. Call Completed: No 04/04/19 12:24 Consult to Oncology [CONS] Routine Consulting Provider: Oncology [facility] Reason for Consult: new prostate cancer Time Notified: 12:24 Call Completed: Yes 04/05/19 13:41 Consult to Physical Therapy [CONS] Routine Comment: Evaluate, develop and implement POC Reason for Consult: deconditioning Does patient have active BEDREST order?: No Is patient medically & hemodynamically stable?: Yes Patient assessed for mobility or mobilized this visit?: No 04/05/19 13:44 Consult to Occupational Therapy [CONS] Routine Comment: Evaluate, develop and implement POC Reason for Consult: weakness Does patient have active BEDREST order?: No Is patient medically & hemodynamically stable?: Yes Patient assessed for mobility or mobilized this visit?: No Discharging clinician: Roselia Garsia Anticipated date of discharge: 04/09/19 - Constitutional Vitals: Temp Pulse Resp BP Pulse Ox 97.5 F L 67 18 148/74 91 04/09/19 06:56 04/09/19 06:56 04/09/19 06:56 04/09/19 06:56 04/09/19 06:56 Exam: Gen.: Vitals noted. No acute distress. AAOx3 HEENT: oropharynx clear, Normocephalic, atraumatic Cardiac: RRR, no murmur, +S1/S2 Pulmonary: CTA bilaterally, no wheezes, rales or rhonchi, equal chest expansion Abdomen: soft, RLQ and LLQ tender, Bowel sounds noted, no guarding MSK: ROM decreased, no joint swelling noted Extremities: no BLE edema, nontender calf, no cyanosis or clubbing Neuro: A&Ox3, moves all extremities, no focal deficits Psych: Appropriate mood and behavior - Patient Status Disposition: Transfer SNF Functional capacity at discharge: independent ambulation Overall status at discharge: patient is back to baseline - Discharge Instructions Follow Up With: Jennifer Ku, APPLICATIONS INTERN [Advanced Practice Nurse] - - Diet and Activity Activity: as per physical therapy Diet: advance to your usual diet
--- NOTE | 2019-04-09 11:10 | Physician Discharge Referral ---
Home Health/Hosp Referral Info Transfer to: Home Health - Diagnosis (1) Urinary retention Status: Acute (2) Abdominal pain Status: Acute (3) Nausea & vomiting Status: Acute (4) Hypertension Status: Acute (5) Pulmonary nodules Status: Acute (6) Gross hematuria Status: Acute (7) Hypertensive urgency Status: Acute (8) Physical deconditioning Status: Acute - Respiratory Orders Smoking Cessation: Smoking cessation has been advised. For more information, call the [place] Tobacco Quit Line at 0-409-OYWT-NOW. - Transfer Medications Prescriptions: Zolpidem [Ambien] 10 mg PO HS 1 Days #1 tablet Belladonna Alkaloids/Opium [B + O] 30 mg RC Q6HR PRN 1 Days #4 supp.rect PRN Reason: Spasms OxyCODONE/APAP 5/325 [Percocet 5/325 MG] 1 each PO Q6HR PRN 1 Days #4 tablet PRN Reason: Pain Home Medications: GuaiFENesin/Dextromethorphan [Tussin Dm Cough Syrup] 20 ml PO Q4H PRN 04/04/19 [History] Bacitracin OINT [Ak-Tracin] 1 appl TP BID tube 04/09/19 [Rx] Belladonna Alkaloids/Opium [B + O] 30 mg RC Q6HR PRN 1 Days #4 supp.rect 04/09/19 [Rx] Bicalutamide [Casodex] 50 mg PO DAILY tablet 04/09/19 [Rx] Chloraseptic [place] [Chloraseptic] 2 spray MM QID PRN bottle 04/09/19 [Rx] Docusate [Colace] 100 mg PO BID udc 04/09/19 [Rx] Gemfibrozil [Lopid] 600 mg PO BID tablet 04/09/19 [Rx] Hyoscyamine SL [Levsin Sl] 0.125 mg SL TID tab.subl 04/09/19 [Rx] Lisinopril [Zestril] 5 mg PO DAILY tablet 04/09/19 [Rx] Loratadine [Claritin] 10 mg PO DAILY tablet 04/09/19 [Rx] Ondansetron ODT [Zofran ODT] 4 mg SL Q8HR PRN tab.rapdis 04/09/19 [Rx] OxyCODONE/APAP 5/325 [Percocet 5/325 MG] 1 each PO Q6HR PRN 1 Days #4 tablet 04/09/19 [Rx] Oxybutynin [Ditropan] 5 mg PO TID tablet 04/09/19 [Rx] Polyethylene Glycol 3350 [MiraLAX] 17 gm PO DAILY powd.pack 04/09/19 [Rx] Zolpidem [Ambien] 10 mg PO HS 1 Days #1 tablet 04/09/19 [Rx] Allergies/Adverse Reactions: Allergy/AdvReac Type Severity Reaction Status Date / Time tree and shrub pollen Allergy Mild Watery Eye Verified 04/04/19 01:54 Certification: Further, I certify that my clinical findings support that this patient is homebound (i.e. absences from home require considerable and taxing effort and are for medical reasons or pentec[employer] services or infrequently or short duration when for other reasons) because: Attestation: My signature below is to certify that this patient is under my care and that I, or nurse practitioner, or a physician's dental chairside assistant working with me, has a [id number] encounter with this patient.
--- NOTE | 2019-04-09 11:14 | Physician Discharge Referral ---
ExtendedCare Referral Info Transfer To: [facility] Provider in Charge: Ady Veloz Provider in Charge after Transfer: PCP Institutional Level of Care: Skilled - Diagnosis (1) Urinary retention Priority: Primary Status: Acute (2) Abdominal pain Priority: Secondary Status: Acute (3) Nausea & vomiting Priority: Secondary Status: Acute (4) Hypertension Priority: Secondary Status: Acute (5) Pulmonary nodules Priority: Secondary Status: Acute (6) Gross hematuria Priority: Secondary Status: Acute (7) Hypertensive urgency Status: Acute (8) Physical deconditioning Priority: Secondary Status: Acute - Transfer Medications Prescriptions: Zolpidem [Ambien] 10 mg PO HS 1 Days #1 tablet Belladonna Alkaloids/Opium [B + O] 30 mg RC Q6HR PRN 1 Days #4 supp.rect PRN Reason: Spasms OxyCODONE/APAP 5/325 [Percocet 5/325 MG] 1 each PO Q6HR PRN 1 Days #4 tablet PRN Reason: Pain Home Medications: GuaiFENesin/Dextromethorphan [Tussin Dm Cough Syrup] 20 ml PO Q4H PRN 04/04/19 [History] Bacitracin OINT [Ak-Tracin] 1 appl TP BID tube 04/09/19 [Rx] Belladonna Alkaloids/Opium [B + O] 30 mg RC Q6HR PRN 1 Days #4 supp.rect 04/09/19 [Rx] Bicalutamide [Casodex] 50 mg PO DAILY tablet 04/09/19 [Rx] Chloraseptic [place] [Chloraseptic] 2 spray MM QID PRN bottle 04/09/19 [Rx] Docusate [Colace] 100 mg PO BID udc 04/09/19 [Rx] Gemfibrozil [Lopid] 600 mg PO BID tablet 04/09/19 [Rx] Hyoscyamine SL [Levsin Sl] 0.125 mg SL TID tab.subl 04/09/19 [Rx] Lisinopril [Zestril] 5 mg PO DAILY tablet 04/09/19 [Rx] Loratadine [Claritin] 10 mg PO DAILY tablet 04/09/19 [Rx] Ondansetron ODT [Zofran ODT] 4 mg SL Q8HR PRN tab.rapdis 04/09/19 [Rx] OxyCODONE/APAP 5/325 [Percocet 5/325 MG] 1 each PO Q6HR PRN 1 Days #4 tablet 04/09/19 [Rx] Oxybutynin [Ditropan] 5 mg PO TID tablet 04/09/19 [Rx] Polyethylene Glycol 3350 [MiraLAX] 17 gm PO DAILY powd.pack 04/09/19 [Rx] Zolpidem [Ambien] 10 mg PO HS 1 Days #1 tablet 04/09/19 [Rx] Allergies/Adverse Reactions: Allergy/AdvReac Type Severity Reaction Status Date / Time tree and shrub pollen Allergy Mild Watery Eye Verified 04/04/19 01:54 - Respiratory Orders Smoking Cessation: Smoking cessation has been advised. For more information, call the [place] Tobacco Quit Line at 2-243-YYNE-NOW. - Advance Directives Living Will: No Power of [employer] for Health Care: No Code Status: DNR-Arrest/Don't Intubate - Mobility Orders Ambulate - Rehabiliation Orders Rehab Orders: Evaluation for Physical Therapy, Evaluation for Occupational Therapy - Diet Orders Regular CERTIFICATION: I certify that the transfer of the above named patient to an Extended Care Facility is necessary for the continuing treatment of the diagnosis listed. The above information is true and accurate reflection of patient's current condition. Confidential - Redisclosure prohibited without a patient's written consent.
[2019-04-09 12:05] VITALS: BP 137/74
[2019-04-09] MEDS: *HR* Belladonna Alkaloids/Opium 30 MG RECTAL SUPPOSITORY RC PRN (12:12)
== END 2019-04-09 12:44 | DRG 700 ==
LOC: 3BNU
PROVIDERS: ADMIT Internal Medicine; ATTEND Nurse Practitioner Acute Care

== ENCOUNTER 2019-05-10 14:56 | Observation (INO) ==
[2019-05-10] MEDS ORDERED: Ondansetron 4 MG/2 ML VIAL IVP PRN (18:54)
[2019-05-10] MEDS ORDERED: Naloxone 0.4 MG/ML INJ IVP PRN (18:54)
[2019-05-11] MEDS ORDERED: 0.9 % Sodium Chloride 1,000 ML IVC SCH (02:30)
--- NOTE | 2019-05-11 03:03 | Internal Med History&Physical ---
Date of Encounter: 05/10/19 Time of Encounter: 23:00 Internal Medicine - H&P: HPI Chief complaint: Hematuria Admitted From: Hospital to Hospital Transfer Plans for Post Hospital Care: Home History of present illness: Mr. Stephens is a 68 year old male with past medical history significant for hypertension, hyperlipidemia, anxiety, and suspected prostate cancer who presents as hospital transfer from [place] [facility] where he presented for complaints of hematuria. Reports this morning he had large amounts of dark red blood from around his urinary catheter and has also noticed that his urine looked similar in his catheter bag. Denies any blood in his stool. Patient was recently discharged from [facility] on 04/09/19 for abdominal pain and difficulty urinating. At that time he had CT of the abdomen and pelvis completed and was found to have prostatomegaly and splenomegaly with retroperitoneal and pelvic lymph node enlargement and pulmonary nodules. He had a urinary catheter placed by urology and plans for prostate biopsy as an outpatient. He was also seen by oncology and placed on Casodex with recommendations for follow-up outpatient. Patient reports he had prostate biopsy performed on Tuesday and urinary catheter was replaced at that time. Reports he sometimes has blood in his urine but not as significant as it was this morning. Otherwise states he has been feeling fine, continues to have intermittent lower quadrant abdominal pain. Does reports being treated last week for UTI after home health nurse noticed pus in catheter bag but denied any urinary complaints at that time. He is unsure what medication he was treated with or exactly how long. Sending ER obtained a CBC, BMP, and lactic which were all unremarkable besides a sodium of 135, CO2 of 17, PTT of 42.1. Sending ER a lso obtained a urinalysis which showed trace ketones, large amount of blood, moderate amount leukocyte esterase. Sending ER also obtained a CT of abdomen and pelvis which showed prostatomegaly, multiple sclerotic foci within the bony pelvis suspicious for osteoblastic metastatic disease, surface nodularity of the liver with recanalized paraumbilical vein and splenomegaly consistent with cirrhosis and portal hypertension, several enlarged periportal and portacaval lymph nodes that may be related to liver disease and enlarged pelvic lymph nodes that may be related to patient's prostate cancer and represent lymph node metastasis, urinary bladder wall thickening that cannot entirely exclude prostate malignancy, colonic diverticulosis without acute diverticulitis, and left hip arthroplasty. While at sending ER patient received fluids, morphine, Zofran, and Rocephin. Currently he reports feeling fine, denies any headache, numbness, tingling, chest pain, shortness of breath, abdominal pain, or bowel changes. Follows regularly with his PCP. Was last seen by Urology Tuesday and has follow up scheduled with Oncology later this month. Past Med Surg Social Fam HX - Past Medical History Medical history: hyperlipidemia, hypertension Psychiatric history: anxiety - Past Surgical History Surgical History: arthroscopy, orthopedic, other Additional surgical history: Left shoulder surgery. bilat knee arthroscopy, right shoulder surgery. Left hip replacement - Social History Smoking Status: Never smoker Smokeless Tobacco Status: No Alcohol use: none Drug use: none - Family History Father Living Status: Hx Family Cardiac Disorders: No Hx Family Respiratory Disorders: No Hx Family Cancer: Yes (Prostate CA) Hx Family GI Disorders: No Hx Family Endocrine Disorder: No Hx Family Neuromuscular Disorders: No Hx Family Neurologic Disorders: No Hx Family HEENT Disorders: No Hx Family Autoimmune Disorders: No Mother Living Status: Hx Family Cardiac Disorders: Yes Hx Family Respiratory Disorders: No Hx Family Cancer: No Hx Family GI Disorders: No Hx Family Endocrine Disorder: No Hx Family Neuromuscular Disorders: No Hx Family Neurologic Disorders: No Hx Family HEENT Disorders: No Hx Family Autoimmune Disorders: No Sister Living Status: Hx Family Cardiac Disorders: No Hx Family Respiratory Disorders: No Hx Family Cancer: Yes (Breast CA) Hx Family GI Disorders: No Hx Family Endocrine Disorder: No Hx Family Neuromuscular Disorders: No Hx Family Neurologic Disorders: No Hx Family HEENT Disorders: No Hx Family Autoimmune Disorders: No Internal Medicine - H&P: Meds GuaiFENesin/Dextromethorphan [Tussin Dm Cough Syrup] 20 ml PO Q4H PRN 04/04/19 [History] Bacitracin OINT [Ak-Tracin] 1 appl TP BID tube 04/09/19 [Rx] Belladonna Alkaloids/Opium [B + O] 30 mg RC Q6HR PRN 1 Days #4 supp.rect 04/09/19 [Rx] Chloraseptic [place] [Chloraseptic] 2 spray MM QID PRN bottle 04/09/19 [Rx] Docusate [Colace] 100 mg PO BID udc 04/09/19 [Rx] Gemfibrozil [Lopid] 600 mg PO BID tablet 04/09/19 [Rx] Hyoscyamine SL [Levsin Sl] 0.125 mg SL TID tab.subl 04/09/19 [Rx] Lisinopril [Zestril] 5 mg PO DAILY tablet 04/09/19 [Rx] Loratadine [Claritin] 10 mg PO DAILY tablet 04/09/19 [Rx] Ondansetron ODT [Zofran ODT] 4 mg SL Q8HR PRN tab.rapdis 04/09/19 [Rx] OxyCODONE/APAP 5/325 [Percocet 5/325 MG] 1 each PO Q6HR PRN 1 Days #4 tablet 04/09/19 [Rx] Oxybutynin [Ditropan] 5 mg PO TID tablet 04/09/19 [Rx] Polyethylene Glycol 3350 [MiraLAX] 17 gm PO DAILY powd.pack 04/09/19 [Rx] Zolpidem [Ambien] 10 mg PO HS 1 Days #1 tablet 04/09/19 [Rx] Bicalutamide 50 mg PO DAILY 05/10/19 [History] Allergy/AdvReac Type Severity Reaction Status Date / Time tree and shrub pollen Allergy Mild Watery Eye Verified 04/04/19 01:54 All Systems PM: A 10-system review of systems was performed and is negative for pertinent findin gs except as documented above in the HPI. - Constitutional Vitals: Temp Pulse Resp BP Pulse Ox 98.0 F 79 19 125/68 95 05/11/19 00:24 05/11/19 00:24 05/11/19 00:24 05/11/19 00:24 05/11/19 00:24 Exam: General: Alert and oriented. Skin:Normal color, no rash, no lesions. HEENT:Pupils equal, round and reactive. Cardiovascular:Heart sounds distant, no rubs, murmurs or gallops. No JVD. Pulse regular. Lungs:Normal breath sounds, no wheezes or crackles. Abdomen:Soft, slightly tender on palpation to lower quadrants, no rigidity. Extremities:No deformity, no edema or tenderness, no joint swelling or clubbing. Neurological:Normal cognition and motor skills. Pulses:Carotid and radial pulses normal +2. Rest of the physical exam is non contributory. - Assessment and Plan (1) Hematuria Current Visit: Yes Status: Acute Assessment and plan: Reports this morning he had large amounts of dark red blood from around his urinary catheter and has also noticed that his urine looked darker than normal in his catheter bag. UA obtained sending ER showed large amount blood. MIVF's ordered. Continue urinary catheter placed by urology. Urology consult ordered, will need called in a.m. Qualifiers: Hematuria type: unspecified type Qualified Code(s): R31.9 - Hematuria, unspecified (2) Abnormal CT of the abdomen Current Visit: Yes Status: Acute Assessment and plan: Sending ER also obtained a CT of abdomen and pelvis which showed prostatomegaly, multiple sclerotic foci within the bony pelvis suspicious for osteoblastic metastatic disease, surface nodularity of the liver with recanalized paraumbilical vein and splenomegaly consistent with cirrhosis and portal hypertension, several enlarged periportal and portacaval lymph nodes that may be related to liver disease and enlarged pelvic lymph nodes that may be related to patient's prostate cancer and represent lymph node metastasis, urinary bladder wall thickening that cannot entirely exclude prostate malignancy, colonic diverticulosis without acute diverticulitis, and left hip arthroplasty. CT of the abdomen and pelvis completed during last admission showed prostatomegaly and splenomegaly with retroperitoneal and pelvic lymph node enlargement and pulmonary nodules. Had urinary catheter placed by Urology during last admission, prostate biopsy Tuesday with results pending. Was also seen by Oncology during last admission and started on Casodex with outpatient follow up planned. Oncology consult ordered, will need called in a.m. (3) Urinary tract infection Current Visit: Yes Status: Acute Assessment and plan: UA obtained at sending ER showed trace ketones, large amount of blood, moderate amount leukocyte esterase. Sending ER started on Ceftriaxone, will continue same. Urine culture pending. Reports being treated as outpatient last week after home health nurse noticed pus in urinary catheter but unsure what medication he took. Qualifiers: Qualified Code(s): N39.0 - Urinary tract infection, site not specified; R31.9 - Hematuria, unspecified (4) Prostate cancer Current Visit: Yes Status: Suspected Assessment and plan: Prostate biopsy pending. Plan as stated above. (5) Hypertension Current Visit: Yes Status: Chronic Assessment and plan: Continue home medications once verified. Qualifiers: Hypertension type: unspecified Qualified Code(s): I10 - Essential (primary) hypertension - Time Spent With Patient Total time spent is greater than 50% in coordination of care (as documented) at patient's floor/unit and/or counseling patient:
[2019-05-11 05:32] LABS: Basophils # 0.1 K/mcL (0.0-0.2); Basophils % 0.9 %; Eosinophils # 0.4 K/mcL (0.0-0.6); Eosinophils % 5.3 %; Hematocrit 42.8 % (37.5-50.1); Hemoglobin 14.6 g/dL (12.9-16.9); Immature Granulocytes % 0.4 % (0-4); Lymphocytes # 2.5 K/mcL (0.6-4.6); Lymphocytes % 36.6 %; Mean Corpuscular HGB Conc 34.1 g/dL (31.6-35.5); Mean Corpuscular Hemoglobin 31.9 pg (28.0-33.3); Mean Corpuscular Volume 93.4 fL (83.0-100.0); Mean Platelet Volume 9.3 fL (9.4-12.4); Monocytes # 0.7 K/mcL (0.0-1.3); Monocytes % 10.8 %; Neutrophils # 3.1 K/mcL (1.6-8.9); Platelet Count 168 K/mcL (140-400); Red Blood Count 4.58 M/mcL (4.19-5.50); Red Cell Distribution Width 12.9 % (11.5-14.5); White Blood Count 6.8 K/mcL (4.3-11.1)
[2019-05-11 05:44] LABS: Albumin 3.7 g/dL (3.5-5.7); Albumin/Globulin Ratio 1.4 (1.1-2.2); Bilirubin,Direct 0.2 mg/dL (0.0-0.2); Bilirubin,Indirect 0.5 mg/dL (0.0-1.2); Bilirubin,Total 0.7 mg/dL (0.3-1.0); Globulin 2.6 g/dL (2.4-3.5); Total Protein 6.3 g/dL (6.4-8.9)
[2019-05-11 05:46] LABS: BUN/Creatinine Ratio 14 (6-26); Blood Urea Nitrogen 13 mg/dL (8-23); Calcium 8.8 mg/dL (8.6-10.3); Carbon Dioxide 22 mEq/L (23-29); Chloride 107 mEq/L (98-107); Glucose 103 mg/dL (70-105); Osmolality,Calculated 280 (280-300); Potassium 3.8 mEq/L (3.5-5.1); Sodium 135 mEq/L (136-145); eGFR For African Americans > 60 (> 60); eGFR For Non-African Americans > 60 (> 60)
--- NOTE | 2019-05-11 07:48 | Urology - Consult Note ---
Date of Encounter: 05/11/19 Time of Encounter: 07:44 - Assessment and Plan (1) Hematuria Current Visit: Yes Status: Resolved Assessment and plan: the gross hematuria has resolved without intervention. continue hydration and ABX. OK to switch to PO meds - bactrim or keflex. follow cultures. keep cath in place bc of retention. Qualifiers: Hematuria type: gross Qualified Code(s): R31.0 - Gross hematuria (2) Prostate cancer Current Visit: Yes Status: Suspected Assessment and plan: CT scan shows possible progression of metastatic disease. will obtain updated PSA. we discussed that aggressive treatment will probably not start while hospitalized especially bc the pathology is pending. consider medical oncology evaluation. Medical oncology usually drives all decisions for treatment bc he has metastatic disease. pt states he is "weak" Questioning if he can go home. consider PT/OT Urology CN:HPI Consult date: 05/11/19 History of present illness: 68 yo WM s/p prostate biospy by Dr Springer on 05/07. likely metastatic prostate cancer but path pending. PSA 103. cath changed at time of biopsy. pt has been in urinary retention for one month. noticed dark gross hematuria yesterday and went to ER. CT scan showed possible progression of the lymphadenopathy and bone mets. transferred for further treatment. pt also has pelvic pain. Past Med Surg Social Fam HX - Past Medical History Medical history: hyperlipidemia, hypertension Psychiatric history: anxiety - Past Surgical History Surgical History: arthroscopy, orthopedic, other Additional surgical history: Left shoulder surgery. bilat knee arthroscopy, right shoulder surgery. Left hip replacement - Social History Smoking Status: Never smoker Smokeless Tobacco Status: No Alcohol use: none Drug use: none - Family History Father Living Status: Hx Family Cardiac Disorders: No Hx Family Respiratory Disorders: No Hx Family Cancer: Yes (Prostate CA) Hx Family GI Disorders: No Hx Family Endocrine Disorder: No Hx Family Neuromuscular Disorders: No Hx Family Neurologic Disorders: No Hx Family HEENT Disorders: No Hx Family Autoimmune Disorders: No Mother Living Status: Hx Family Cardiac Disorders: Yes Hx Family Respiratory Disorders: No Hx Family Cancer: No Hx Family GI Disorders: No Hx Family Endocrine Disorder: No Hx Family Neuromuscular Disorders: No Hx Family Neurologic Disorders: No Hx Family HEENT Disorders: No Hx Family Autoimmune Disorders: No Sister Living Status: Hx Family Cardiac Disorders: No Hx Family Respiratory Disorders: No Hx Family Cancer: Yes (Breast CA) Hx Family GI Disorders: No Hx Family Endocrine Disorder: No Hx Family Neuromuscular Disorders: No Hx Family Neurologic Disorders: No Hx Family HEENT Disorders: No Hx Family Autoimmune Disorders: No Medications and Allergies GuaiFENesin/Dextromethorphan [Tussin Dm Cough Syrup] 20 ml PO Q4H PRN 04/04/19 [History] Bacitracin OINT [Ak-Tracin] 1 appl TP BID tube 04/09/19 [Rx] Belladonna Alkaloids/Opium [B + O] 30 mg RC Q6HR PRN 1 Days #4 supp.rect 04/09/19 [Rx] Chloraseptic [place] [Chloraseptic] 2 spray MM QID PRN bottle 04/09/19 [Rx] Docusate [Colace] 100 mg PO BID udc 04/09/19 [Rx] Gemfibrozil [Lopid] 600 mg PO BID tablet 04/09/19 [Rx] Hyoscyamine SL [Levsin Sl] 0.125 mg SL TID tab.subl 04/09/19 [Rx] Lisinopril [Zestril] 5 mg PO DAILY tablet 04/09/19 [Rx] Loratadine [Claritin] 10 mg PO DAILY tablet 04/09/19 [Rx] Ondansetron ODT [Zofran ODT] 4 mg SL Q8HR PRN tab.rapdis 04/09/19 [Rx] OxyCODONE/APAP 5/325 [Percocet 5/325 MG] 1 each PO Q6HR PRN 1 Days #4 tablet 04/09/19 [Rx] Oxybutynin [Ditropan] 5 mg PO TID tablet 04/09/19 [Rx] Polyethylene Glycol 3350 [MiraLAX] 17 gm PO DAILY powd.pack 04/09/19 [Rx] Zolpidem [Ambien] 10 mg PO HS 1 Days #1 tablet 04/09/19 [Rx] Bicalutamide 50 mg PO DAILY 05/10/19 [History] Allergy/AdvReac Type Severity Reaction Status Date / Time tree and shrub pollen Allergy Mild Watery Eye Verified 04/04/19 01:54 Review of Systems - Constitutional fatigue, weakness, no chills, no fever(s) - EENT Nose, mouth and throat: no dizziness - Cardiovascular no chest pain - Respiratory no cough - Genitourinary difficulty urinating, hematuria - Musculoskeletal back pain - Integumentary no erythema - Neurological no confusion - Psychiatric no anxiety - Hematologic/Lymphatic easy bleeding - Allergic/Immunologic no throat swelling Exam Initial Vital Signs Temp Pulse Resp BP Pulse Ox 97.4 F L 61 18 144/93 95 05/10/19 17:43 05/10/19 17:43 05/10/19 17:43 05/10/19 17:43 05/10/19 17:43 - General physical appearance Present: well developed, no distress - Eyes Present: PERRL, conjunctiva is clear - ENT Present: normal nares - Neck Present: no masses, no lymphadenopathy - Respiratory Present: normal respiratory effort - Cardiovascular Cardiovascular exam IM: RRR - Abdomen Abdomen: Present: soft, suprapubic tenderness. Absent: distended - Genitourinary normal penis with no external lesions - Integumentary Present: no rash, no growths, no abnormal pigmentation - Neurologic Present: normal coordination. Absent: disoriented, confused (seems anxious. ) - Additional Findings hernandes cath drainign transparent clear urine. Urology Results - Labs 05/11/19 04:23 05/11/19 04:23 Abnormal lab results MPV 9.3 fL (9.4-12.4) L 05/11/19 04:23 Sodium 135 mEq/L (136-145) L 05/11/19 04:23 Carbon Dioxide 22 mEq/L (23-29) L 05/11/19 04:23 Serum Total Protein 6.3 g/dL (6.4-8.9) L 05/11/19 04:23 Diabetes panel 05/11/19 05/11/19 Range/Units 04:23 04:23 Sodium 135 L (136-145) mEq/L Potassium 3.8 (3.5-5.1) mEq/L Chloride 107 (98-107) mEq/L Carbon Dioxide 22 L (23-29) mEq/L BUN 13 (8-23) mg/dL Creatinine 0.95 (0.70-1.30) mg/dL Glucose 103 (70-105) mg/dL Calcium 8.8 (8.6-10.3) mg/dL AST 23 (13-39) Units/L ALT 18 (7-52) Units/L Alkaline Phosphatase 90 (34-104) Units/L Albumin 3.7 (3.5-5.7) g/dL Calcium panel 05/11/19 05/11/19 Range/Units 04:23 04:23 Calcium 8.8 (8.6-10.3) mg/dL Albumin 3.7 (3.5-5.7) g/dL Pituitary panel 05/11/19 Range/Units 04:23 Sodium 135 L (136-145) mEq/L Potassium 3.8 (3.5-5.1) mEq/L Chloride 107 (98-107) mEq/L Carbon Dioxide 22 L (23-29) mEq/L BUN 13 (8-23) mg/dL Creatinine 0.95 (0.70-1.30) mg/dL Glucose 103 (70-105) mg/dL Calcium 8.8 (8.6-10.3) mg/dL Adrenal panel 05/11/19 05/11/19 Range/Units 04:23 04:23 Sodium 135 L (136-145) mEq/L Potassium 3.8 (3.5-5.1) mEq/L Chloride 107 (98-107) mEq/L Carbon Dioxide 22 L (23-29) mEq/L BUN 13 (8-23) mg/dL Creatinine 0.95 (0.70-1.30) mg/dL Glucose 103 (70-105) mg/dL Calcium 8.8 (8.6-10.3) mg/dL Total Bilirubin 0.7 (0.3-1.0) mg/dL AST 23 (13-39) Units/L ALT 18 (7-52) Units/L Alkaline Phosphatase 90 (34-104) Units/L Albumin 3.7 (3.5-5.7) g/dL All other labs normal. Consult Discharge Plan - Plan Referrals: Jennifer Ku, [facility] [Primary Care Provider] -
[2019-05-11] MEDS: Acetaminophen 325 MG TABLET PO PRN (11:03)
--- NOTE | 2019-05-11 12:21 | Internal Med Progress Note ---
Hospitalist Progress Note - Encounter Date of Encounter: 05/11/19 Time of Encounter: 12:21 - Subjective Interval History: Patient seen and examined. No acute events overnight. Reports an 8/10 global throbbing headache. Denies chest pain, palpitations, SOB and blurred vision. - Exam Vitals: Temp Pulse Resp BP Pulse Ox 36.4 C L 70 15 124/73 92 05/11/19 10:33 05/11/19 10:33 05/11/19 10:33 05/11/19 10:33 05/11/19 10:33 Exam: GENERAL: Not in distress. Alert and Oriented HEENT: EOMI, PERRLA MOUTH: Moist oral mucosa NECK:No JVD, No lymph nodes. CHEST AND LUNGS: Normal breath sounds, no wheezes or crackles HEART: S1 and S2 normal, no murmurs ABDOMEN: Soft, nontender, no organomegaly SKIN: Normal color, no rashes, no lesions EXTREMITIES: No deformity, no edema, no tenderness, no joint swelling or clubbing NEUROLOGICAL: Normal cognition, normal motor and sensory exam. - Assessment and Plan (1) Hematuria Current Visit: Yes Status: Resolved Assessment and Plan: Urine clear at time of encounter. Patient has been seen by urology. Recommendation is to continue PO antibiotics and leave hernandes catheter in place because of retention. (2) Abnormal CT of the abdomen Current Visit: Yes Status: Acute Assessment and Plan: Sending ER aobtained a CT of abdomen and pelvis which showed prostatomegaly, multiple sclerotic foci within the bony pelvis suspicious for osteoblastic metastatic disease, surface nodularity of the liver with recanalized paraumbilical vein and splenomegaly consistent with cirrhosis and portal hypertension, several enlarged periportal and portacaval lymph nodes that may be related to liver disease and enlarged pelvic lymph nodes that may be related to patient's prostate cancer and represent lymph node metastasis, urinary bladder wall thickening that cannot entirely exclude prostate malignancy, colonic diverticulosis without acute diverticulitis, and left hip arthroplasty. CT of the abdomen and pelvis completed during last admission showed prostatomegaly and splenomegaly with retroperitoneal and pelvic lymph node enlargement and pulmonary nodules. Had urinary catheter placed by Urology during last admission, prostate biopsy Tuesday with results pending. Was also seen by Oncology during last admission and started on Casodex with outpatient follow up planned. Awaiting oncology eval (3) Urinary tract infection Current Visit: Yes Status: Acute Assessment and Plan: Awaiting urine cultures. Continue PO bactrim. (4) Prostate cancer Current Visit: Yes Status: Suspected Assessment and Plan: Prostate biopsy pending. Plan as stated above. (5) Hypertension Current Visit: Yes Status: Chronic Assessment and Plan: BP currently controlled. Continue home meds. DVT Prophylaxis: PCDs - Time Spent with Patient Total time spent is greater than 50% in coordination of care (as documented) at patient's floor/unit and/or counseling patient: Internal Medicine: Result - Labs CBC & Chem 7: 05/11/19 04:23 05/11/19 04:23 Labs: Short CBC 05/11/19 Range/Units 04:23 WBC 6.8 (4.3-11.1) K/mcL Hgb 14.6 (12.9-16.9) g/dL Hct 42.8 (37.5-50.1) % Plt Count 168 (140-400) K/mcL Neutrophils # 3.1 (1.6-8.9) K/mcL BMP 05/11/19 04:23 Sodium 135 L Potassium 3.8 Chloride 107 Carbon Dioxide 22 L BUN 13 Creatinine 0.95 Glucose 103 Calcium 8.8 Liver Function 05/11/19 Range/Units 04:23 Total Bilirubin 0.7 (0.3-1.0) mg/dL Direct Bilirubin 0.2 (0.0-0.2) mg/dL AST 23 (13-39) Units/L ALT 18 (7-52) Units/L Alkaline Phosphatase 90 (34-104) Units/L Albumin 3.7 (3.5-5.7) g/dL Consult Discharge Plan - Plan Referrals: Jennifer Ku, [employer] [Primary Care Provider] - _ (1) Hematuria Qualifiers: Hematuria type: gross Qualified Code(s): R31.0 - Gross hematuria (3) Urinary tract infection Qualifiers: Qualified Code(s): N39.0 - Urinary tract infection, site not specified; R31.9 - Hematuria, unspecified (5) Hypertension Qualifiers: Hypertension type: unspecified Qualified Code(s): I10 - Essential (primary) hypertension
--- NOTE | 2019-05-11 14:23 | Oncology Inp Consult Note ---
<RupertTrent ryan - Last Filed: 05/11/19 16:44> Date of Encounter: 05/11/19 - Data of Consult Requesting Physician: Jennifer Gutierrez MD Primary Care Provider: Jennifer Ku CNP Medications and Allergies Bacitracin OINT [Ak-Tracin] 1 appl TP BID tube 04/09/19 [Rx] Gemfibrozil [Lopid] 600 mg PO BID tablet 04/09/19 [Rx] Hyoscyamine SL [Levsin Sl] 0.125 mg SL TID tab.subl 04/09/19 [Rx] Lisinopril [Zestril] 5 mg PO DAILY tablet 04/09/19 [Rx] Loratadine [Claritin] 10 mg PO DAILY tablet 04/09/19 [Rx] Ondansetron ODT [Zofran ODT] 4 mg SL Q8HR PRN tab.rapdis 04/09/19 [Rx] Oxybutynin [Ditropan] 5 mg PO TID tablet 04/09/19 [Rx] Zolpidem [Ambien] 10 mg PO HS 1 Days #1 tablet 04/09/19 [Rx] Bicalutamide [Casodex] 50 mg PO DAILY 05/10/19 [History] Guaifenesin [Mucinex] 600 mg PO Q12H PRN 05/11/19 [History] Hydrocodone/Acetaminophen [[place] 5-325 Tablet] 1 tab PO Q6H PRN 05/11/19 [History] Polyethylene Glycol 3350 [MiraLAX] 17 gm PO DAILY PRN 05/11/19 [History] Sulfamethoxazole/Trimeth DS [Bactrim Ds] 1 tab PO BID 05/11/19 [History] diazePAM [Valium] 5 mg PO DAILY 05/11/19 [History] Allergy/AdvReac Type Severity Reaction Status Date / Time tree and shrub pollen Allergy Mild Watery Eye Verified 05/11/19 09:53 Consult Discharge Plan - Plan Referrals: Jennifer Ku CNP [Primary Care Provider] - Inpatient Charges Provider: Dr. Joanne Emery Consult - Inpatient: [id number] - Attending Attestation I examined this patient and my medical decision-making was reviewed with the Advanced Practice Nurse. I agree with the documented findings, disposition and treatment plan as described except to the extent set forth below. Mr. Kessler is a 68-year-old gentleman with newly diagnosed metastatic prostate cancer. He had his prostate biopsy done earlier this week and is admitted for evaluation of hematuria. He was started on Casodex by Dr. Douglass and seen on initial consultation 2 weeks ago. The patient is very tearful today as he has lost several family members to cancer in the past 9 months and is worried about his prognosis given stage IV cancer. We had an extensive discussion about the risk and prognosis associated with stage IV metastatic prostate cancer, the treatments available, side effects and reassured him that his symptoms will improve once we start combined androgen therapy with both Casodex and Lupron. Recommendations: 1. Continue conservative management of hematuria. 2, we will restart his Casodex 50 mg daily. 3. We will start him on oxybutynin 5 mg daily and Flomax 0.4 mg daily for his outflow obstruction and bladder spasm. 4. We will start Lupron injections and have scheduled him to see me on Tuesday05/14/2019 in clinic for his first injection. Trent Emery [employer] and medical oncologist [facility] Ph : [phone] <Prosper Mas Jr - Last Filed: 05/11/19 17:36> Date of Encounter: 05/11/19 Time of Encounter: 14:20 Assessment and Plan (1) Prostate cancer Status: Suspected Assessment and plan: This is a 68 year old male with new history of prostate cancer. He was admitted 05/11/19 fro hematuria after prostate biopsy on 05/07/19. Pathology still pending. He was started on Casodex 50 mg PO daily after last admission on 04/06/[address] Piedra at [facility]. He has scheduled follow up with her 05/22/19 Recommendations: 1. Ordered Casodex 50 mg PO daily start dose today. Also ordered oxybutynin and flomax to start today. Please continue these at discharge. 2. We will need to start lupron injections q 3 months starting after discharge. We explained the natural course of metastatic prostate cancer and first line treatment with casodex and lupron. We discussed prognosis 3. We are concerned about his support at home. has passed and his son and daughter in law with busy schedules. Consider social work consult. 4. He will see Dr Emery, our new medical oncologist with [facility]. Appointment on 05/14/19 at 200pm at our cancer center (Dr Emery will be staffing our new [facility] location at the end of this month and he will receive his care at that location that is closer to his home once our office opens there). Please place appointment with discharge instructions Dr Emery assessed patient with me today and agrees with above plan - Data of Consult Patient: known to practice within the last 3 years Consult date: 05/11/19 Requesting Physician: Jennifer Gutierrez MD Primary Care Provider: Jennifer Ku CNP - Consult Narrative Reason for consult: metastatic prostate cancer History of present illness: Mr. Ricco Stephens, a 68yo male with known history of HTN, HLD, and anxiety. New pateint to [facility] with Dr Pricila Piedra. He originally presented a few weeks ago to [facility] ([facility]) due to feeling unwell, nausea, vomiting, and abdominal pain. He was found to have rodrigo hematuria after traumatic hernandes placement. CT abdomen/pelvis at [place] demonstrated mild to moderately enlarged retroperitoneal/pelvic lymph nodes with some adjacent inflammatory change. Findings may be nonspecific inflammatory, infectious, or neoplastic. Nonspecific areas of sclerosis involving the left pubic and iliac bones without fracture. Consider dedicated bone scan or correlate with history of malignancy. Prostatomegaly 8.3 x 7.8 cm and splenomegaly. Scattered subcentimeter by basilar pulmonary nodules with recommendation of one year chest CT follow-up. Admitted to [facility] late March 2019 started on casodex with outpatient prostate biopsy on 05/07/19. He had gross hematuria on 05/11/19 and he was transferred to [facility]. Sending ER at [place] obtained a CT of abdomen and pelvis which showed prostatomegaly, multiple sclerotic foci within the bony pelvis suspicious for osteoblastic metastatic disease, surface nodularity of the liver with recanalized paraumbilical vein and splenomegaly consistent with cirrhosis and portal hypertension, several enlarged periportal and portacaval lymph nodes that may be related to liver disease and enlarged pelvic lymph nodes that may be related to patient's prostate cancer and represent lymph node metastasis, urinary bladder wall thickening that cannot entirely exclude prostate malignancy, colonic diverticulosis without acute diverticulitis, and left hip arthroplasty. His CT of the abdomen and pelvis completed during last admission late March 2019 showed prostatomegaly and splenomegaly with retroperitoneal and pelvic lymph node enlargement and pulmonary nodules. Had urinary catheter placed by Urology during last admission, prostate biopsy Tuesday with results pending. He was seen by DR Piedra from [facility] during last admission and started on Casodex with outpatient follow up planned. Indwelling hernandes catheter. Past Med Surg Social Fam HX - Past Medical History Medical history: hyperlipidemia, hypertension Psychiatric history: anxiety - Past Surgical History Surgical History: arthroscopy, orthopedic, other Additional surgical history: Left shoulder surgery. bilat knee arthroscopy, right shoulder surgery. Left hip replacement - Social History Smoking Status: Never smoker Smokeless Tobacco Status: No Alcohol use: none Drug use: none - Family History Father Living Status: Hx Family Cardiac Disorders: No Hx Family Respiratory Disorders: No Hx Family Cancer: Yes (Prostate CA) Hx Family GI Disorders: No Hx Family Endocrine Disorder: No Hx Family Neuromuscular Disorders: No Hx Family Neurologic Disorders: No Hx Family HEENT Disorders: No Hx Family Autoimmune Disorders: No Mother Living Status: Hx Family Cardiac Disorders: Yes Hx Family Respiratory Disorders: No Hx Family Cancer: No Hx Family GI Disorders: No Hx Family Endocrine Disorder: No Hx Family Neuromuscular Disorders: No Hx Family Neurologic Disorders: No Hx Family HEENT Disorders: No Hx Family Autoimmune Disorders: No Sister Living Status: Hx Family Cardiac Disorders: No Hx Family Respiratory Disorders: No Hx Family Cancer: Yes (Breast CA) Hx Family GI Disorders: No Hx Family Endocrine Disorder: No Hx Family Neuromuscular Disorders: No Hx Family Neurologic Disorders: No Hx Family HEENT Disorders: No Hx Family Autoimmune Disorders: No Genitourinary: Present: hematuria Oncology - Exam - Constitutional General appearance: cooperative, no acute distress - Head Head exam: Present: normal inspection, normocephalic - Eye Eye exam: Present: normal appearance, PERRL - ENT ENT exam: Present: mucous membranes moist - Neck Neck exam: Present: full ROM - Respiratory Respiratory exam: Present: CTAB - Cardiovascular Cardiovascular exam: Present: RRR - GI/Abdominal GI/Abdominal exam: Present: soft - Extremities Exam Extremities exam: Present: full ROM, normal inspection - Neurological Exam Neurological exam: Present: alert, oriented X3, no focal deficits - Psychiatric Psychiatric exam: Present: depressed - Skin Skin exam: Present: dry, intact Oncology Inpatient Results Labs: Laboratory Last Values WBC 6.8 K/mcL (4.3-11.1) 05/11/19 04:23 RBC 4.58 M/mcL (4.19-5.50) 05/11/19 04:23 Hgb 14.6 g/dL (12.9-16.9) 05/11/19 04:23 Hct 42.8 % (37.5-50.1) 05/11/19 04:23 MCV 93.4 fL (83.0-100.0) 05/11/19 04:23 MCH 31.9 pg (28.0-33.3) 05/11/19 04:23 MCHC 34.1 g/dL (31.6-35.5) 05/11/19 04:23 RDW 12.9 % (11.5-14.5) 05/11/19 04:23 Plt Count 168 K/mcL (140-400) 05/11/19 04:23 MPV 9.3 fL (9.4-12.4) L 05/11/19 04:23 Immature Gran % 0.4 % (0-4) 05/11/19 04:23 Seg Neutrophils % 46.0 % 05/11/19 04:23 Lymphocytes % 36.6 % 05/11/19 04:23 Monocytes % 10.8 % 05/11/19 04:23 Eosinophils % 5.3 % 05/11/19 04:23 Basophils % 0.9 % 05/11/19 04:23 Neutrophils # 3.1 K/mcL (1.6-8.9) 05/11/19 04:23 Lymphocytes # 2.5 K/mcL (0.6-4.6) 05/11/19 04:23 Monocytes # 0.7 K/mcL (0.0-1.3) 05/11/19 04:23 Eosinophils # 0.4 K/mcL (0.0-0.6) 05/11/19 04:23 Basophils # 0.1 K/mcL (0.0-0.2) 05/11/19 04:23 Sodium 135 mEq/L (136-145) L 05/11/19 04:23 Potassium 3.8 mEq/L (3.5-5.1) 05/11/19 04:23 Chloride 107 mEq/L (98-107) 05/11/19 04:23 Carbon Dioxide 22 mEq/L (23-29) L 05/11/19 04:23 BUN 13 mg/dL (8-23) 05/11/19 04:23 Creatinine 0.95 mg/dL (0.70-1.30) 05/11/19 04:23 Est GFR ( Amer) > 60 (> 60) 05/11/19 04:23 Est GFR (Non-Af Amer) > 60 (> 60) 05/11/19 04:23 BUN/Creatinine Ratio 14 (6-26) 05/11/19 04:23 Glucose 103 mg/dL (70-105) 05/11/19 04:23 Calculated Osmolality 280 (280-300) 05/11/19 04:23 Calcium 8.8 mg/dL (8.6-10.3) 05/11/19 04:23 Total Bilirubin 0.7 mg/dL (0.3-1.0) 05/11/19 04:23 Direct Bilirubin 0.2 mg/dL (0.0-0.2) 05/11/19 04:23 Indirect Bilirubin 0.5 mg/dL (0.0-1.2) 05/11/19 04:23 AST 23 Units/L (13-39) 05/11/19 04:23 ALT 18 Units/L (7-52) 05/11/19 04:23 Alkaline Phosphatase 90 Units/L (34-104) 05/11/19 04:23 Serum Total Protein 6.3 g/dL (6.4-8.9) L 05/11/19 04:23 Albumin 3.7 g/dL (3.5-5.7) 05/11/19 04:23 Globulin 2.6 g/dL (2.4-3.5) 05/11/19 04:23 Albumin/Globulin Ratio 1.4 (1.1-2.2) 05/11/19 04:23 Prostate Specific Ag 20.63 ng/mL (Less than 4.00) H 05/11/19 09:24
[2019-05-11] MEDS ORDERED: cefTRIAXone 1,000 MG in Water for inj. (sterile) 10 ML IVP SCH (15:00)
[2019-05-11] MEDS ORDERED: *HR* HYDROcodone/Acet 5/325 mg TABLET PO PRN (17:56)
[2019-05-11] MEDS ORDERED: Ondansetron ODT 4 MG TAB.RAPDIS SL PRN (17:56)
[2019-05-11] MEDS: Bicalutamide 50 MG TABLET PO SCH (18:23)
[2019-05-11] MEDS: Sulfamethoxazole/Trimeth DS 1 EACH TABLET PO SCH (20:02)
--- NOTE | 2019-05-12 07:44 | Urology Progress Note ---
Date of Encounter: 05/12/19 Time of Encounter: 07:42 - Assessment and Plan (1) Hematuria Current Visit: Yes Status: Resolved Qualifiers: Hematuria type: gross Qualified Code(s): R31.0 - Gross hematuria (2) Prostate cancer Current Visit: Yes Status: Suspected Assessment and plan: Patient's PSA dropped to 20. He has been evaluated by oncology with an outpatient plan for prostate cancer management. No further urologic intervention required at this time. Patient can be discharged from urology [facility]. He voiced that he may wish to go home today rather than wait for placement in a penitentiary Progress Note Subjective: feels better, still having pain Objective Initial Vital Signs Temp Pulse Resp BP Pulse Ox 97.4 F L 61 18 144/93 95 05/10/19 17:43 05/10/19 17:43 05/10/19 17:43 05/10/19 17:43 05/10/19 17:43 - Additional Exam Patient's urine is clear Patient appears in no distress - Labs 05/11/19 04:23 05/11/19 04:23 Consult Discharge Plan - Plan Referrals: Jennifer Ku, [facility] [Primary Care Provider] -
[2019-05-12] MEDS ORDERED: Loratadine 10 MG TABLET PO SCH (09:00)
[2019-05-12] MEDS ORDERED: diazePAM 5 MG TABLET PO SCH (09:00)
--- NOTE | 2019-05-12 09:09 | Discharge Summary ---
Date of Encounter: 05/12/19 Time of Encounter: 09:05 - Discharge Diagnosis (1) Hematuria Priority: Primary Status: Resolved Qualifiers: Hematuria type: gross Qualified Code(s): R31.0 - Gross hematuria (2) Abnormal CT of the abdomen Priority: Secondary Status: Acute (3) Urinary tract infection Priority: Secondary Status: Acute Qualifiers: Qualified Code(s): N39.0 - Urinary tract infection, site not specified; R31.9 - Hematuria, unspecified (4) Prostate cancer Priority: Secondary Status: Suspected (5) Hypertension Priority: Secondary Status: Chronic Qualifiers: Hypertension type: unspecified Qualified Code(s): I10 - Essential (primary) hypertension Hospital course: Mr. Stephens is a 68 year old male who presented with hematuria 4 days after undergoing a prostate biopsy for suspected prostate Ca. The hematuria resolved spontaneously without intervention and patient is currently back to his baseline general state. He was reviewed by oncology and urology and plan is to discharge patient on Casodex, flomax and oxybutynin to follow up with oncology as outpatient for Lupron injections. First appointment 05/14/2019 Discharge discussed with: patient, nurse, service consultant Time spent discussing smoking cessation with patient: more than 10 minutes - Time Spent with Patient Total time spent providing and/or coordinating discharge services: Time spent: Greater than 30 minutes (45minutes) - Discharge Medications Prescriptions: New Tamsulosin [Flomax] 0.4 mg PO DAILY #30 capsule Continued Bacitracin OINT [Ak-Tracin] 1 appl TP BID tube Loratadine [Claritin] 10 mg PO DAILY tablet Hyoscyamine SL [Levsin Sl] 0.125 mg SL TID tab.subl Gemfibrozil [Lopid] 600 mg PO BID tablet Lisinopril [Zestril] 5 mg PO DAILY tablet Zolpidem [Ambien] 10 mg PO HS 1 Days #1 tablet Ondansetron ODT [Zofran ODT] 4 mg SL Q8HR PRN tab.rapdis PRN Reason: Nausea And Vomiting diazePAM [Valium] 5 mg PO DAILY Hydrocodone/Acetaminophen [[place] 5-325 Tablet] 1 tab PO Q6H PRN PRN Reason: Pain Polyethylene Glycol 3350 [MiraLAX] 17 gm PO DAILY PRN PRN Reason: Constipation Guaifenesin [Mucinex] 600 mg PO Q12H PRN PRN Reason: Congestion Sulfamethoxazole/Trimeth DS [Bactrim Ds] 1 tab PO BID Bicalutamide [Casodex] 50 mg PO DAILY #30 tab Changed Oxybutynin [Ditropan] 5 mg PO DAILY 2 Days #30 tablet Home Medications: Bacitracin OINT [Ak-Tracin] 1 appl TP BID tube 04/09/19 [Rx] Gemfibrozil [Lopid] 600 mg PO BID tablet 04/09/19 [Rx] Hyoscyamine SL [Levsin Sl] 0.125 mg SL TID tab.subl 04/09/19 [Rx] Lisinopril [Zestril] 5 mg PO DAILY tablet 04/09/19 [Rx] Loratadine [Claritin] 10 mg PO DAILY tablet 04/09/19 [Rx] Ondansetron ODT [Zofran ODT] 4 mg SL Q8HR PRN tab.rapdis 04/09/19 [Rx] Zolpidem [Ambien] 10 mg PO HS 1 Days #1 tablet 04/09/19 [Rx] Guaifenesin [Mucinex] 600 mg PO Q12H PRN 05/11/19 [History] Hydrocodone/Acetaminophen [[place] 5-325 Tablet] 1 tab PO Q6H PRN 05/11/19 [History] Polyethylene Glycol 3350 [MiraLAX] 17 gm PO DAILY PRN 05/11/19 [History] Sulfamethoxazole/Trimeth DS [Bactrim Ds] 1 tab PO BID 05/11/19 [History] diazePAM [Valium] 5 mg PO DAILY 05/11/19 [History] Bicalutamide [Casodex] 50 mg PO DAILY #30 tab 05/12/19 [Rx] Oxybutynin [Ditropan] 5 mg PO DAILY 2 Days #30 tablet 05/12/19 [Rx] Tamsulosin [Flomax] 0.4 mg PO DAILY #30 capsule 05/12/19 [Rx] Allergies/Adverse Reactions: Allergy/AdvReac Type Severity Reaction Status Date / Time tree and shrub pollen Allergy Mild Watery Eye Verified 05/11/19 09:53 Date of admission: 05/10/19 17:36 Primary care physician: Jennifer Ku CNP Consults: 05/11/19 00:54 Consult to Urology [CONS] Routine Consulting Provider: [facility] Reason for Consult: Presented to sending ER for large amount of dark red blood coming from around his catheter. Has also been having dark urine which is new. Had prostate biopsy and catheter replaced with [facility] on Tuesday. Call Completed: No 05/11/19 00:55 Consult to Oncology [CONS] Routine Consulting Provider: Oncology [facility] Reason for Consult: Had prostate biopsy completed Tuesday and is awaiting results. Presented to sending ER for large amount dark red blood coming from around urinary catheter. CT Abdomen and Pelvis at sending facility shows possible metastatic disease. Had appointment scheduled with [facility] for later this month. Call Completed: No 05/11/19 00:59 Consult to Pastoral Services [CONS] Routine Comment: - Constitutional Vitals: Temp Pulse Resp BP Pulse Ox 36.8 C 68 16 130/68 93 05/12/19 07:09 05/12/19 07:09 05/12/19 07:09 05/12/19 07:09 05/12/19 07:09 Exam: GENERAL: Not in distress. Alert and Oriented HEENT: EOMI, PERRLA MOUTH: Moist oral mucosa NECK:No JVD, No lymph nodes. CHEST AND LUNGS: Normal breath sounds, no wheezes or crackles HEART: S1 and S2 normal, no murmurs ABDOMEN: Soft, nontender, no organomegaly GENITOURINARY: CLear urine in urine bag. SKIN: Normal color, no rashes, no lesions EXTREMITIES: No deformity, no edema, no tenderness, no joint swelling or clubbing NEUROLOGICAL: Normal cognition, normal motor and sensory exam. - Patient Status Disposition: Home Health Service Condition: Fair Functional capacity at discharge: independent ambulation Overall status at discharge: patient is back to baseline - Discharge Instructions Follow Up With: Ternt Emery MD [Partnered Physician] - Jennifer Ku CNP [Primary Care Provider] - 05/14/19 2:00 pm - Diet and Activity Activity: resume usual activities as tolerated Diet: advance to your usual diet
--- NOTE | 2019-05-12 09:38 | Physician Discharge Referral ---
Home Health/Hosp Referral Info Transfer to: Home Health - Diagnosis (1) Prostate cancer Priority: Primary Status: Suspected (2) Hematuria Priority: Secondary Status: Resolved (3) Abnormal CT of the abdomen Priority: Secondary Status: Acute (4) Urinary tract infection Priority: Secondary Status: Acute (5) Hypertension Priority: Secondary Status: Chronic - Respiratory Orders Smoking Cessation: Smoking cessation has been advised. For more information, call the [place] Tobacco Quit Line at 3-034-QOWR-NOW. - Services Needed Following services are medically necessary services: Nursing - Transfer Medications Prescriptions: Bicalutamide [Casodex] 50 mg PO DAILY #30 tab Transmission Status: Received by [facility] Oxybutynin [Ditropan] 5 mg PO DAILY 2 Days #30 tablet Transmission Status: Received by [id number] Tamsulosin [Flomax] 0.4 mg PO DAILY #30 capsule Transmission Status: Received by [facility] Home Medications: Bacitracin OINT [Ak-Tracin] 1 appl TP BID tube 04/09/19 [Rx] Gemfibrozil [Lopid] 600 mg PO BID tablet 04/09/19 [Rx] Hyoscyamine SL [Levsin Sl] 0.125 mg SL TID tab.subl 04/09/19 [Rx] Lisinopril [Zestril] 5 mg PO DAILY tablet 04/09/19 [Rx] Loratadine [Claritin] 10 mg PO DAILY tablet 04/09/19 [Rx] Ondansetron ODT [Zofran ODT] 4 mg SL Q8HR PRN tab.rapdis 04/09/19 [Rx] Zolpidem [Ambien] 10 mg PO HS 1 Days #1 tablet 04/09/19 [Rx] Guaifenesin [Mucinex] 600 mg PO Q12H PRN 05/11/19 [History] Hydrocodone/Acetaminophen [[place] 5-325 Tablet] 1 tab PO Q6H PRN 05/11/19 [History] Polyethylene Glycol 3350 [MiraLAX] 17 gm PO DAILY PRN 05/11/19 [History] Sulfamethoxazole/Trimeth DS [Bactrim Ds] 1 tab PO BID 05/11/19 [History] diazePAM [Valium] 5 mg PO DAILY 05/11/19 [History] Bicalutamide [Casodex] 50 mg PO DAILY #30 tab 05/12/19 [Rx] Oxybutynin [Ditropan] 5 mg PO DAILY 2 Days #30 tablet 05/12/19 [Rx] Tamsulosin [Flomax] 0.4 mg PO DAILY #30 capsule 05/12/19 [Rx] Allergies/Adverse Reactions: Allergy/AdvReac Type Severity Reaction Status Date / Time tree and shrub pollen Allergy Mild Watery Eye Verified 05/11/19 09:53 Certification: Further, I certify that my clinical findings support that this patient is homebound (i.e. absences from home require considerable and taxing effort and are for medical reasons or jehovah's witness services or infrequently or short duration when for other reasons) because: Homebound Reason: Leaving home requires considerable and taxing effort due to condition Attestation: My signature below is to certify that this patient is under my care and that I, or nurse practitioner, or a physician's parts room assistant working with me, has a [id number] encounter with this patient.
[2019-05-12] MEDS: Bicalutamide 50 MG TABLET PO SCH (09:48)
[2019-05-12] MEDS: Sulfamethoxazole/Trimeth DS 1 EACH TABLET PO SCH (09:48)
[2019-05-12 11:10] VITALS: BP 113/69
[2019-05-12] MEDS: Acetaminophen 325 MG TABLET PO PRN (13:27)
== END 2019-05-12 16:15 | disposition home health service (06) ==
LOC: 3ANU → SUATTDRO 17:36
PROVIDERS: ADMIT Internal Medicine; ATTEND Internal Medicine